=== PATIENT | male | born 2000 | race Caucasian/White ===

== ENCOUNTER 2022-11-21 08:22 | Inpatient (IN) | payer OTHER, SELFPAY ==
[2022-11-21] VITALS (133 sets, daily range): BP systolic 126–190; BP diastolic 70–134; PULSE 75–163; RESP 11–70; TEMP 36.8–37.7; O2SAT 82–100; BMI 22.5
--- NOTE | 2022-11-21 08:29 | CTR_ITS ---
PROCEDURE INFORMATION: Exam: CT Head Without Contrast Exam date and time: 11/21/2022 8:58 AM Age: 22 years old Clinical indication: Altered mental status/memory loss; Patient HX: Fall x today hitting posterior head on concrete. Multiple seizures since. ; Additional info: Ams/loc TECHNIQUE: Imaging protocol: Computed tomography of the head without contrast. Radiation optimization: All CT scans at this facility use at least one of these dose optimization techniques: automated exposure control; mA and/or kV adjustment per patient size (includes targeted exams where dose is matched to clinical indication); or iterative reconstruction. COMPARISON: No relevant prior studies available. RADIATION DOSE METRICS: Total DLP (mGy-cm): 1140.29 FINDINGS: Brain: Normal. No hemorrhage. No space-occupying masses or areas of mass effect. No edema or midline shift. Cortical sulci are unremarkable for age. Cerebral ventricles: No ventriculomegaly. Paranasal sinuses: Visualized sinuses are unremarkable. No fluid levels. Mastoid air cells: Visualized mastoid air cells are well aerated. Bones/joints: Unremarkable. Soft tissues: Small scalp hematoma adjacent to the left occipital bone. CT/CT head wo con* [id number] IMPRESSION: Small scalp hematoma otherwise negative CT examination of the head.
--- NOTE | 2022-11-21 08:32 | W.ED.SEIZURE ---
HPI - Seizure General: Chief Complaint: Seizure Stated Complaint: Fall Time Seen by Provider: 11/21/22 08:23 Source: patient Mode of arrival: EMS History of Present Illness: HPI Narrative: 22-year-old male brought into the emergency room from local primary care clinic by EMS. His father had found him at home passed out he was uncertain what happened brought to the clinic to be evaluated. He had a witnessed seizure at the clinic. No previous history of seizures. Loss of urine continence during the episode. He is awake and alert when he arrives here he is asking for water. No recent illness no vomiting or diarrhea no abdominal or chest pain no head trauma is noticeable. MD complaint: seizure Onset (ago): minute(s) Description of Episode: tonic-clonic movement and bladder incontinence Witnessed: Yes - by Bystander Trauma: No Seizure History: No Place: Clinic Possible Precipitating Event: none Associated symptoms: Reports confusion; Deny chest pain, chills, cough, diaphoresis, fever(s), anorexia, malaise, rash, short of breath, syncope or weakness Treatments prior to arrival: none Review of Systems Const: Denies: fever(s), chills, malaise or diaphoresis ENMT: Denies: throat pain, ear or mastoid pain, nasal discharge or nasal congestion Card: Denies: chest pain or syncope Resp: Denies: dyspnea, productive cough or non-productive cough GI: Denies: abdominal pain, nausea, vomiting, hematemesis, coffee ground emesis, diarrhea, constipation, bloating, hematochezia or melena : Denies: flank pain, dysuria, urinary frequency or urinary urgency Skin/Breast: Denies: rash or pruritus Neuro: Reports: confusion PFSH ED PFSH: Medical History No significant past medical history Surgical History History of appendectomy History of surgery on lower extremity S/P appendectomy Social History Smoking and tobacco status: current every day smoker Alcohol intake: current Alcohol intake frequency: 3 or more drinks per day Physical Exam Const: GENERAL APPEARANCE: cooperative and comfortable ORIENTATION/CONSCIOUSNESS: Yes awake HENMT: COMMON NORMALS: normocephalic, atraumatic and hearing grossly normal bilaterally HEAD & SCALP: normocephalic and atraumatic Eye: COMMON NORMALS: Equal, round and reactive pupils present, EOMs intact bilaterally, conjunctivae normal and no scleral icterus CONJUNCTIVA: Yes conjunctivae normal PUPIL: Yes Equal, round and reactive pupils present Neck/C-Spine: COMMON NORMALS: full ROM, no lymphadenopathy and supple Lymph: LYMPHATIC: no lymphadenopathy noted and no lymphedema noted Resp: COMMON NORMALS: normal respiratory effort, No retractions, No use of accessory muscles and clear to auscultation bilaterally AUSCULTATION: clear to auscultation bilaterally Cardio: COMMON NORMALS: regular rate, regular rhythm and No murmurs present (Cardio) RATE: regular rate RHYTHM: regular rhythm GI: COMMON NORMALS: Soft to palpation and No hepatosplenomegaly present AUSCULTATION: Yes normoactive bowel sounds PALPATION: Yes Soft to palpation, No Tenderness to palpation present (GI), No Guarding due to palpation present (GI) and Yes No hepatosplenomegaly present Extremity: COMMON NORMALS: normal to inspection, capillary refill normal, no clubbing, cyanosis or edema, no calf tenderness and no pedal edema Neuro: OTHER: Patient was tremulous when his postictal phase resolved. Skin: COMMON NORMALS: no rashes or lesions noted GENERAL SKIN EXAM: no rashes or lesions noted Course Vital Signs: Vital signs: Vital Signs Temperature 98.3 F 11/21/22 20:00 Pulse Rate 93 11/22/22 02:30 Respiratory Rate 26 H 11/22/22 02:30 Blood Pressure 190/115 11/22/22 02:30 Pulse Oximetry 96 11/22/22 02:30 Oxygen Delivery Me thod 11/22/22 02:30 Oxygen Flow Rate 2 11/21/22 10:38 Fraction of Inspir ed Oxygen 50 11/22/22 02:30 MDM - Seizure MDM Narrative Medical decision making narrative: Patient arrived here he had a witnessed seizure by EMS and is seizure at home. After he been here time he had a witnessed seizure here to grand mal seizure with deviation of the eyes and the neck to the labs. During that time he desatted and during the early postictal phase he was not maintaining his sats he was repositioned oxygen was applied and a nasal trumpet was placed. This resolved his issues eventually to his postictal phase resolved and he was very tremulous also noted to be extremely tachycardic. Initial discussions with the patient and his parents he was only drinking occasionally 1-2 beers at night during the week I have been more weak. Later his girlfriend admitted he will have 4 or more more mixed drinks per night and then drink more heavily on the weekends been going on for some time. Given his tachycardia and tremulousness that he think he is having alcohol withdrawal is fairly significant given his blood alcohol is just under 80 after he arrived here and he had already had 2 seizures. CIWA protocol initiated, patient given extra dose of Ativan while in the emergency room. He will be admitted to the ICU for alcohol withdrawal and onset of seizures. Medical Records Attestation: I reviewed the patient's medical records. Lab Data Attestation: I reviewed the patient's lab results. 11/21/22 08:08 11/21/22 14:00 Labs: Radiology Impressions Head CT 11/21/22 08:29 IMPRESSION: Small scalp hematoma otherwise negative CT examination of the head. Chest X-Ray 11/21/22 08:38 Impression: Negative chest. Laboratory Results WBC 4.0 10^3/uL (4.0-10.0) 11/21/22 08:08 RBC 5.07 10^6/uL (4.1-5.3) 11/21/22 08:08 Hgb 16.2 g/dL (11.7-16.6) 11/21/22 08:08 Hct 50.9 % (42.0-52.0) 11/21/22 08:08 MCV 100.4 fl (80-94) H 11/21/22 08:08 MCH 32.0 pg (28.0-34.0) 11/21/22 08:08 MCHC 31.8 g/dL (30.0-36.0) 11/21/22 08:08 RDW 12.5 % (12.1-15.1) 11/21/22 08:08 Plt Count 146 10^3/cmm (130-400) 11/21/22 08:08 MPV 10.4 fL (7.4-10.4) 11/21/22 08:08 Neut % (Auto) 37.7 % 11/21/22 08:08 Lymph % (Auto) 41.0 % 11/21/22 08:08 Mcminn % (Auto) 19.0 % 11/21/22 08:08 Eos % (Auto) 0.5 % 11/21/22 08:08 Baso % (Auto) 1.0 % 11/21/22 08:08 Neut # (Auto) 1.51 10^3/uL (1.8-7.7) L 11/21/22 08:08 Lymph # (Auto) 1.6 10^3/uL (0.8-4.8) 11/21/22 08:08 Mcminn # (Auto) 0.8 10^3/uL (0.2-0.9) 11/21/22 08:08 Eos # (Auto) 0.0 10^3/uL (0.0-0.8) 11/21/22 08:08 Baso # (Auto) 0.0 10^3/uL (0.0-0.1) 11/21/22 08:08 Nucleated RBC % (auto) 0 % 11/21/22 08:08 Nucleated RBCs # 0.0 /100WBC 11/21/22 08:08 Sodium 136 mmol/L (136-145) 11/21/22 14:00 Potassium 3.7 mmol/L (3.5-5.1) 11/21/22 14:00 Chloride 102 mmol/L (98-107) 11/21/22 14:00 Carbon Dioxide 20 mmol/L (22-29) L 11/21/22 14:00 Anion Gap 17.7 (5-19) 11/21/22 14:00 BUN 10 mg/dL (6-20) 11/21/22 14:00 Creatinine 0.6 mg/dL (0.7-1.2) L 11/21/22 14:00 GFR Calculation 168.5 mL/min (90-130) H 11/21/22 14:00 Glucose 75 mg/dL (65-115) 11/21/22 14:00 Calculated Osmolality 280 mOsm/kg (285-295) L 11/21/22 14:00 Calcium 7.8 mg/dL (8.5-10.5) L 11/21/22 14:00 Total Bilirubin 0.7 mg/dL (0.15-1.2) 11/21/22 08:08 AST 187 U/L (0-40) H 11/21/22 08:08 ALT 135 U/L (0-41) H 11/21/22 08:08 Alkaline Phosphatase 81 U/L (40-130) 11/21/22 08:08 Creatine Kinase 677 U/L (39-308) H* 11/21/22 14:00 Total Protein 8.8 g/dL (6.6-8.7) H 11/21/22 08:08 Albumin 5.0 g/dL (3.5-5.2) 11/21/22 08:08 Globulin 3.8 g/dL (1.3-4.6) 11/21/22 08:08 Urine Color Yellow (Yellow) 11/21/22 11:45 Urine Appearance Clear (CLEAR) 11/21/22 11:45 Urine pH 6 (5-7) 11/21/22 11:45 Ur Specific [place] 1.025 (1.005-1.030) 11/21/22 11:45 Urine Protein 2+ (Negative) H 11/21/22 11:45 Urine Glucose (UA) Norm (Normal) 11/21/22 11:45 Urine Ketones 1+ (Negative) H 11/21/22 11:45 Urine Blood 3+ (Negative) H 11/21/22 11:45 Urine Nitrate Negative (Negative) 11/21/22 11:45 Urine Bilirubin Neg (Negative) 11/21/22 11:45 Urine Urobilinogen Neg mg/dL (Negative) 11/21/22 11:45 Ur Leukocyte Esterase Negative (Negative) 11/21/22 11:45 Urine RBC 0-4 /hpf (0-2) H 11/21/22 11:45 Urine WBC None /hpf (0-5) 11/21/22 11:45 Ur Squamous Epith Cells None /hpf (0-5) 11/21/22 11:45 Amorphous Sediment Not Reportable 11/21/22 11:45 Urine Bacteria Trace /hpf (NONE) 11/21/22 11:45 Hyaline Casts 0-4 /lpf H 11/21/22 11:45 Salicylates < 0.3 mg/dL (3-10) L 11/21/22 08:08 Urine Opiates Screen Negative ng/mL (Negative) 11/21/22 11:45 Acetaminophen < 5.0 ug/mL (10-30) L 11/21/22 08:08 Ur Barbiturates Screen Negative ng/mL (Negative) 11/21/22 11:45 Ur Phencyclidine Scrn Negative ng/mL (Negative) 11/21/22 11:45 Ur Amphetamines Screen Negative ng/mL (Negative) 11/21/22 11:45 U Benzodiazepines Scrn Negative ng/mL (Negative) 11/21/22 11:45 Urine Cocaine Screen Negative ng/mL (Negative) 11/21/22 11:45 U Marijuana (THC) Screen Negative ng/mL (Negative) 11/21/22 11:45 Ethyl Alcohol 74 mg/dL (0-10) H 11/21/22 08:08 Hepatitis A IgM Ab Non-reactive (Nonreactive) 11/21/22 08:08 Hep Bs Antigen Non-reactive (Nonreactive) 11/21/22 08:08 Hep B Core IgM Ab Non-reactive (Nonreactive) 11/21/22 08:08 Hepatitis C Antibody Non-reactive (Nonreactive) 11/21/22 08:08 Discharge Plan Discharge Patient Disposition: Admitted As Inpatient Admit Provider: Gallo Okeefe Clinical Impression: Alcohol withdrawal, Seizure, Transaminitis Condition: Stable Coding Level of Care Code ED Machine Ii Coremaker for [place] Fwd Exam Comprehensive
--- NOTE | 2022-11-21 08:36 | ECG_ITS ---
[facility] Test Date: 2022-11-21 Pat Name: Saw No Department: Room: Gender: Male Visual Merchandiser: : 2000 Requested By: Apolinar Palacios Order Number: [id number] Ed MD: Antwan Cannon M.D. Measurements Intervals [place] Rate: 125 P: 81 CA: 172 QRS: 76 QRSD: 112 T: 20 QT: 321 QTc: 464 Interpretive Statements SINUS TACHYCARDIA MODERATE INTRAVENTRICULAR CONDUCTION DELAY [110+ ms QRS DURATION] MINIMAL ST DEPRESSION [0.025+ mV ST DEPRESSION] ABNORMAL RHYTHM ECG No previous ECG available for comparison Electronically Signed On 11-21-2022 20:25:09 CARD GAME OPERATOR by Antwan Cannon M.D. [id number]
--- NOTE | 2022-11-21 08:38 | XR_ITS ---
WS: [id number] Portable AP upright chest, 11/21/2022 Clinical Data: hypoxia Comparison: None. Findings: No nodules, masses or effusions are seen. The heart is normal. The pulmonary vascularity is not increased. No pneumonia or pneumothorax is seen. XR/XR chest 1V portable [id number] Impression: Negative chest.
[2022-11-21 08:48] LABS: Eosinophils % 0.5 %; Hematocrit 50.9 % (42.0-52.0); Hemoglobin 16.2 g/dL (11.7-16.6); Lymphocytes # 1.6 10^3/uL (0.8-4.8); Mean Corpuscular HGB Conc 31.8 g/dL (30.0-36.0); Mean Corpuscular Volume 100.4 fl (80-94); Mean Platelet Volume 10.4 fL (7.4-10.4); Monocytes # 0.8 10^3/uL (0.2-0.9); Neutrophils # 1.51 10^3/uL (1.8-7.7); Neutrophils % 37.7 %; Nucleated Red Blood Cells % 0 %; Platelet Count 146 10^3/cmm (130-400); Red Blood Count 5.07 10^6/uL (4.1-5.3); Red Cell Distribution Width 12.5 % (12.1-15.1)
[2022-11-21 09:11] LABS: Alanine Aminotransferase 135 U/L (0-41); Alcohol Level 74 mg/dL (0-10); Alkaline Phosphatase 81 U/L (40-130); Anion Gap 35.5 (5-19); Aspartate Amino Transferase 187 U/L (0-40); Blood Urea Nitrogen 12 mg/dL (6-20); Calcium 9.5 mg/dL (8.5-10.5); Carbon Dioxide 13 mmol/L (22-29); Chloride 94 mmol/L (98-107); Globulin 3.8 g/dL (1.3-4.6); Glomerular Filtration Rate 105.5 mL/min (90-130); Glucose 109 mg/dL (65-115); Osmolality Calculated 288 mOsm/kg (285-295); Potassium 3.5 mmol/L (3.5-5.1); Sodium 139 mmol/L (136-145); Total Bilirubin 0.7 mg/dL (0.15-1.2); Total Protein 8.8 g/dL (6.6-8.7)
[2022-11-21 09:13] LABS: Acetaminophen < 5.0 ug/mL (10-30); Salicylate < 0.3 mg/dL (3-10)
[2022-11-21] MEDS: LORazepam 2 mg/mL INJ 1 mL IVP (10:34)
[2022-11-21] MEDS: sodium chloride 0.9% 1,000 ML 999 ML IV ×2 (12:03→14:01)
[2022-11-21 12:10] LABS: Amphetamines Screen Urine Negative (Negative); Barbiturates Screen Urine Negative (Negative); Benzodiazepines Screen Urine Negative (Negative); Cocaine Screen Urine Negative (Negative); Opiate Screen Urine Negative (Negative); PCP Screen Urine Negative (Negative); Protein Urine 2+ (Negative); Specific Gravity, Urine 1.025 (1.005-1.030); THC Screen Urine Negative (Negative); Urine Appearance Clear (CLEAR); Urine Color Yellow (Yellow); pH Urine 6 (5-7)
[2022-11-21 12:11] LABS: Add Urine Culture? No; Add Urine Microscopic? YES; Bacteria Urine TRACE /hpf; Bilirubin Urine Neg (Negative); Blood Urine 3+ (Negative); Glucose Urine UA Norm (Normal); Hyaline Casts Urine 0-4 /lpf; Ketones Urine 1+ (Negative); Leukocyte Esterase Urine Negative (Negative); Nitrate Urine Negative (Negative); RBC Urine 0-4 /hpf (0-2); Urobilinogen Urine Neg (Negative)
[2022-11-21] MEDS: LORazepam 2 mg Tablet PO ×2 (12:29→22:53)
--- NOTE | 2022-11-21 13:50 | PM.HP ---
Providers/Chief Complaint Admitting Physician: Gallo Okeefe MD, hospitalist Chief Complaint: Fall History of Present Illness Saw No is a 22 year old male presenting to the emergency department for concern of seizure. Apparently his father found him at home, passed out and was uncertain what happened. He was brought to the clinic where his seizure was witnessed. He was later seen to seize in the emergency department as well. Patient is alert and oriented currently and denies any prior history of seizure disorder. He reports he has had some shaking intermittently, worse when he skips meals for quite some time. He reports he does drink alcohol, around 4 drinks or so a day at least for the last year. He reports his mother has had some seizures but he is not for sure if they are familial. He denies any recent significant illness, fever. He denies any shortness of breath, headache. In the emergency department he received some Keppra, and some Ativan. With concern of alcohol withdrawal he was placed on a CIWA protocol. No history of head trauma. Review of Systems General: Reports: 10 or more systems reviewed and unremarkable except in HPI and below Const: Denies: fever(s) or chills Eyes: Denies: change in vision ENMT: Denies: throat pain Card: Denies: chest pain Resp: Denies: dyspnea GI: Denies: abdominal pain : Denies: flank pain Musc: Denies: neck pain Skin/Breast: Denies: rash Neuro: Reports: seizure-like activity; Denies: headache(s) Psych: Denies: anxiety or depression Endo: Denies: polyuria Socrates/Lymph: Denies: easy bruising All/Imm: Denies: urticaria Medications/Allergies Home Medications Medication Instructions Recorded Confirmed Last Taken Type No Known Home Medications 11/21/22 11/21/22 Unknown History Allergies Allergy/AdvReac Type Severity Reaction Status Date / Time No Known Allergies Allergy Unverified 11/21/22 09:13 PFSH Acute PFSH: Medical History (Updated 11/21/22 @ 14:07 by Gallo Okeefe MD) No significant past medical history Surgical History (Updated 11/21/22 @ 14:04 by Gallo Okeefe MD) History of appendectomy History of surgery on lower extremity S/P appendectomy Social History (Updated 11/21/22 @ 14:05 by Gallo Okeefe MD) Smoking and tobacco status: current every day smoker Alcohol intake: current Alcohol intake frequency: 3 or more drinks per day Other PFSH information: Supplemental [facility] Information: Family history significant for seizures Vitals/I&O/Wt Last Vital Signs Temp 98.2 F 11/21/22 12:45 Pulse 117 H 11/21/22 12:40 Resp 15 11/21/22 12:40 BP 159/110 11/21/22 12:40 Pulse Ox 94 11/21/22 12:40 O2 Del Method 11/21/22 10:38 O2 Flow Rate 2 11/21/22 10:38 11/20/22 11/21/22 11/21/22 22:59 06:59 14:59 Intake Total 1110 / 1110 Balance 1110 / 1110 Weight last 48 hrs Weight 90.718 kg Physical Exam Narrative: General exam is a white male, with tremor, in no apparent distress was able to answer questions appropriately and denies headache HEENT: Atraumatic normocephalic pupils equally round. Oropharynx clear Neck is supple no lymphadenopathy thyromegaly Cardiovascular tachycardic, regular, no murmur Lungs clear no wheezing or crackles Abdomen is soft obese nontender positive bowel sounds. No obvious organomegaly exams deferred Extremities no cyanosis clubbing or edema, cap refill brisk Skin no rash Neuro no focal deficits. Data 11/21/22 08:08 11/21/22 08:08 Other Labs: LFTs demonstrate an AST of 187 and ALT of 135. Alk phos, bilirubin and albumin are all normal Urinalysis demonstrates 0-4 red cells, no white cells. Urine drug screen is essentially negative. Salicylate and Tylenol level undetectable. Alcohol level 74 CT head demonstrates small scalp hematoma otherwise negative. Chest x-ray negative. EKG demonstrates sinus tachycardia, normal axis, nonspecific ST-T wave changes A&P Assessment and plan (1) Seizure: Patient presents from home unresponsive. 2 witnessed seizures have been noted in the emergency department as well as in the referring clinic Keppra has been initiated in the emergency department. We will continue 1000 mg IV every 12 hours Observe for any further seizures (2) Alcohol withdrawal: I believe the patient may be undergoing alcohol withdrawal. He admits to at least 4 drinks per day. He is tachycardic, hypertensive, and tremulous. Initiate CIWA protocol, Ativan as needed If this fails consider phenobarbital (3) Transaminitis: Check hepatitis panel Repeat tomorrow Plan Full code Low risk for DVT, no prophylaxis needed Attestations Medical Necessity Statement*: Will require greater than 2 midnight stay secondary to repetitive seizures and concern for alcohol withdrawal. Critical Care Time: The high probability of a clinically significant, sudden or life threatening deterioration of the patient's [neurologic, metabolic] system(s) required my full and direct attention, intervention and personal management. The critical care time is as shown. This time is in addition to time spent performing any reported procedures but includes the following: [x] Data and vital sign review and interpretation [x] Patient assessment, examination and intervention [x] Documentation [x] Medication orders and management Critical Care Time (min): 46 Coding Level of Care Code Acute Otter Trawler Boatswain for [facility] Mars Diagnoses Seizure R56.9 Alcohol withdrawal F10.939 Transaminitis R74.01
[2022-11-21 14:38] LABS: Anion Gap 17.7 (5-19); Blood Urea Nitrogen 10 mg/dL (6-20); Calcium 7.8 mg/dL (8.5-10.5); Carbon Dioxide 20 mmol/L (22-29); Chloride 102 mmol/L (98-107); Glomerular Filtration Rate 168.5 mL/min (90-130); Glucose 75 mg/dL (65-115); Osmolality Calculated 280 mOsm/kg (285-295); Potassium 3.7 mmol/L (3.5-5.1); Sodium 136 mmol/L (136-145)
[2022-11-21 14:39] LABS: Hepatitis A Antibody IgM Non-Reactive (Nonreactive); Hepatitis B Core IgM Non-Reactive (Nonreactive); Hepatitis B Surface Antigen Non-Reactive (Nonreactive); Hepatitis C Virus Antibody Non-Reactive (Nonreactive)
[2022-11-21 14:52] LABS: Creatine Phosphokinase 677 U/L (39-308)
[2022-11-21 16:59] LABS: Glucose Point of Care 89 mg/dL (70-110)
[2022-11-21] MEDS: D5-NS 0.45% + KCL 20 mEq 20 MEQ/1,000 ML BAG 150 MEQ IV ×2 (17:01→23:44)
[2022-11-21] MEDS: famotidine 20 mg/2 mL INJ IVP (17:01)
[2022-11-21] MEDS: hyDRALAzine 20 mg/mL INJ 1 mL 10 MG IVP ×2 (17:54→23:44)
--- NOTE | 2022-11-21 23:10 | PC.NURSE ---
Patient states he is very anxious about tomorrow and worried about what is going to happen and if he is going to be able to go home. Patient educated on alcohol abuse and withdrawal symptoms including seizures. CIWA score 10. Ativan 2mg PO per protocol.
[2022-11-22] VITALS (46 sets, daily range): BP systolic 91–197; BP diastolic 42–127; PULSE 73–105; RESP 12–26; TEMP 36.8; O2SAT 91–98
[2022-11-22] MEDS: LORazepam 2 mg/mL INJ 1 mL IVP (02:26)
--- NOTE | 2022-11-22 03:21 | PC.NURSE ---
Patient becoming more anxious. Jumped out of bed disoriented looking for the bathroom and pulled IV out. Patient intermittently confused on location. Patient reoriented. Patient's mother is in the room and educated on the importance of calling for help when patient needs to use the bathroom. Patient educated multiple times on monitoring lines and leaving them on. Patient continuously removes pulse ox and cardiac monitoring. Mother is attempting to distract and keep monitoring in place. CIWA now scoring 17.
[2022-11-22] MEDS: LORazepam 2 mg/mL INJ 1 mL IM (03:55)
[2022-11-22] MEDS: ondansetron 2 mg/ML SDV 2 mL 4 MG IVP ×2 (06:01→15:07)
[2022-11-22] MEDS: famotidine 20 mg/2 mL INJ IVP ×2 (06:05→16:44)
[2022-11-22] MEDS: LORazepam 2 mg Tablet PO (06:30)
[2022-11-22 06:33] LABS: Basophils % 1.2 %; Eosinophils % 0.3 %; Hematocrit 46.3 % (42.0-52.0); Hemoglobin 15.2 g/dL (11.7-16.6); Lymphocytes % 30.5 %; Mean Corpuscular HGB Conc 32.8 g/dL (30.0-36.0); Mean Corpuscular Hemoglobin 31.6 pg (28.0-34.0); Mean Corpuscular Volume 96.3 fl (80-94); Mean Platelet Volume 10.4 fL (7.4-10.4); Monocytes # 0.6 10^3/uL (0.2-0.9); Monocytes % 18.1 %; Neutrophils # 1.59 10^3/uL (1.8-7.7); Neutrophils % 49.6 %; Nucleated Red Blood Cells % 0 %; Platelet Count 120 10^3/cmm (130-400); Red Blood Count 4.81 10^6/uL (4.1-5.3); Red Cell Distribution Width 12.2 % (12.1-15.1); White Blood Count 3.2 10^3/uL (4.0-10.0)
[2022-11-22 06:41] LABS: Alanine Aminotransferase 95 U/L (0-41); Albumin Level 4.6 g/dL (3.5-5.2); Alkaline Phosphatase 66 U/L (40-130); Anion Gap 20.5 (5-19); Aspartate Amino Transferase 126 U/L (0-40); Blood Urea Nitrogen 7 mg/dL (6-20); Calcium 9.1 mg/dL (8.5-10.5); Carbon Dioxide 22 mmol/L (22-29); Chloride 97 mmol/L (98-107); Globulin 3.4 g/dL (1.3-4.6); Glomerular Filtration Rate 168.5 mL/min (90-130); Glucose 102 mg/dL (65-115); Osmolality Calculated 280 mOsm/kg (285-295); Potassium 3.5 mmol/L (3.5-5.1); Sodium 136 mmol/L (136-145); Total Bilirubin 0.9 mg/dL (0.15-1.2)
[2022-11-22 06:48] LABS: Creatine Phosphokinase 1842 U/L (39-308)
[2022-11-22] MEDS: multivitamin therapeutic Tablet 1 TAB PO (08:08)
[2022-11-22] MEDS: thiamine 100 mg Tablet PO (08:08)
[2022-11-22] MEDS: folic acid 1 mg Tablet PO (08:08)
[2022-11-22] MEDS: D5-NS 0.45% + KCL 20 mEq 20 MEQ/1,000 ML BAG 150 MEQ IV ×3 (08:09→20:12)
--- NOTE | 2022-11-22 10:09 | PM.PN ---
Subjective Subjective: Saw reports he is fairly sore this morning. No seizures noted overnight. He has required several doses of Ativan. Medications: Reviewed: Yes Vitals/I&O/Wt Last Vital Signs Temp 98.3 F 11/21/22 20:00 Pulse 88 11/22/22 09:22 Resp 24 H 11/22/22 07:30 BP 91/42 11/22/22 08:00 Pulse Ox 98 11/22/22 09:22 O2 Del Method 11/22/22 09:22 O2 Flow Rate 2 11/21/22 10:38 FiO2 50 11/22/22 02:00 11/21/22 11/22/22 11/22/22 22:59 06:59 14:59 Intake Total 1920 / 3030 2110 / 5140 240 / 240 Output Total 250 / 250 450 / 700 Balance 1670 / 2780 1660 / 4440 240 / 240 Weight last 48 hrs Weight 128.905 kg Weight 90.718 kg Physical Exam Narrative: General exam is a white male, slightly tremulous, awakens and answers questions Neck is supple no lymphadenopathy thyromegaly Cardiovascular tachycardic, regular, no murmur Lungs clear no wheezing or crackles Abdomen is soft obese nontender positive bowel sounds. No obvious organomegaly exams deferred Extremities no cyanosis clubbing or edema, cap refill brisk Skin no rash Neuro no focal deficits. Data 11/22/22 05:58 11/22/22 05:58 A&P Assessment and plan (1) Seizure: Patient presents from home unresponsive. 2 witnessed seizures have been noted in the emergency department as well as in the referring clinic Keppra has been initiated in the emergency department. Changed to p.o. (2) Alcohol withdrawal: I believe the patient may be undergoing alcohol withdrawal. He admits to at least 4 drinks per day. He is tachycardic, hypertensive, and tremulous. Continue CIWA protocol, Ativan as needed If this fails consider phenobarbital Continue thiamine, folate, multivitamin Discharge planning, to give outpatient materials Add Librium p.o. as needed (3) Transaminitis: Hepatitis panel negative LFTs slight improvement Plan Slightly low platelet count, white count, consistent with alcohol use Rhabdomyolysis. CK more elevated today. Continue hydration. Full code Low risk for DVT, no prophylaxis needed Attestations Medical Necessity Statement*: Needs continued hospitalization for close monitoring secondary to alcohol withdrawal requiring IV Ativan. Coding Level of Care Code Acute Graphotype Operator for [facility] Fwd Diagnoses Seizure R56.9 Alcohol withdrawal F10.939 Transaminitis R74.01
[2022-11-22] MEDS: chlordiazePOXIDE 25 mg Capsule PO ×2 (10:38→16:44)
--- NOTE | 2022-11-22 10:39 | PC.CHAP ---
Pastoral Care Encounter/Spiritual Assessment Type of Contact [] Declined manager emergency department visit [] Patient/Family/Request visit [] Outpatient visit [] Follow-up visit [] Physician referral [] Code/Alert [x] Routine visit [] Staff referral [] Actively dying [] Patient sleeping [x] Family support [] [] Out of room [] Palliative care [] [x] Receiving care in room [] Pre-surgical visit [] Trauma [] Long length of stay [x] ICU visit [] Other: Relational/Emotional Strength [] Patient feels connected with others/family/visitors/staff [] Distress [] Loneliness/isolation [] Abandonment Spirituality of Patient [] Person of Anca [] Attends Scientologist of their Anca [] Believes in Prayer [] Reads Bible or Evangelical materials [] There are Spiritual issues to be addressed Elementary Education Tutor Interventions [x] Prayer [] Active listening [] Non-anxious presence [] Spiritual/emotional support [] Crisis/trauma care [] Spiritual counseling [] Bereavement support [] Provided bereavement packet [] Provided Bible/devotional materials [] Provided toy/stuffed animal, coloring book to patient or family member [] Provided Communion [] Anointing/[place] [] Salvation [x] Completed spiritual assessment [] Other: Impact on Illness or Injury [] Angry [] Fearful [] Anxious [] Often cries [] Exhaustion [] Unable to work [] Unable to attend yazidi [] Unable to walk/stand [] Unable to read [] Unable to drive [] Unable to eat/drink [] Unable to sleep [] Unable to be with family [] Patient intubated [] Other: Summary Time spent with patient
[2022-11-22] MEDS: nicotine 21 mg Patch 1 PATCH TRANSDERMA (11:01)
--- NOTE | 2022-11-22 17:50 | PC.NURSE ---
Patient getting up to bathroom earlier this shift, patient had an accident and slipped in urine with staff in the room and fell on bottom to ground. No injuries sustained. Patient did not hit head, as staff witnessed fall. Notified Dr. Okeefe who asked patient not get up without assist from staff. Patient was also switched to librium to help with withdrawals.
[2022-11-22] MEDS: levETIRAcetam 500 mg Tablet 1000 MG PO (20:10)
--- NOTE | 2022-11-22 22:10 | ECG_ITS ---
[facility] Test Date: 2022-11-22 Pat Name: Saw No Department: Room: [facility] Gender: Male Photo Producer: : 2000 Requested By: Sandra Rust Order Number: [id number] Ed MD: Luis Jane M.D. Measurements Intervals [place] Rate: 79 P: 69 TX: 160 QRS: 73 QRSD: 118 T: 69 QT: 406 QTc: 468 Interpretive Statements SINUS RHYTHM MODERATE INTRAVENTRICULAR CONDUCTION DELAY [110+ ms QRS DURATION] Compared to ECG 11/21/2022 08:36:09 Sinus tachycardia no longer present ST (T wave) deviation no longer present Electronically Signed On 11-23-2022 8:53:13 RESEARCH AND DEVELOPMENT TECHNICIAN by Luis Jane M.D. [id number]
[2022-11-23] VITALS (10 sets, daily range): BP systolic 147–170; BP diastolic 94–108; PULSE 69–107; RESP 18–24; TEMP 37.2; O2SAT 96–97
[2022-11-23] MEDS: D5-NS 0.45% + KCL 20 mEq 20 MEQ/1,000 ML BAG 150 MEQ IV (02:44)
[2022-11-23 03:16] LABS: Basophils % 0.9 %; Eosinophils % 0.9 %; Hematocrit 44.7 % (42.0-52.0); Hemoglobin 14.7 g/dL (11.7-16.6); Lymphocytes % 29.2 %; Mean Corpuscular HGB Conc 32.9 g/dL (30.0-36.0); Mean Corpuscular Hemoglobin 31.8 pg (28.0-34.0); Mean Corpuscular Volume 96.8 fl (80-94); Mean Platelet Volume 11.4 fL (7.4-10.4); Monocytes # 0.6 10^3/uL (0.2-0.9); Monocytes % 17.9 %; Neutrophils # 1.71 10^3/uL (1.8-7.7); Neutrophils % 50.8 %; Nucleated Red Blood Cells % 0 %; Platelet Count 115 10^3/cmm (130-400); Red Blood Count 4.62 10^6/uL (4.1-5.3); Red Cell Distribution Width 12.3 % (12.1-15.1); White Blood Count 3.4 10^3/uL (4.0-10.0)
[2022-11-23 03:46] LABS: Alanine Aminotransferase 93 U/L (0-41); Albumin Level 4.5 g/dL (3.5-5.2); Alkaline Phosphatase 65 U/L (40-130); Anion Gap 20.8 (5-19); Aspartate Amino Transferase 124 U/L (0-40); Blood Urea Nitrogen 9 mg/dL (6-20); Calcium 9.4 mg/dL (8.5-10.5); Carbon Dioxide 22 mmol/L (22-29); Chloride 99 mmol/L (98-107); Globulin 3.5 g/dL (1.3-4.6); Glomerular Filtration Rate 168.5 mL/min (90-130); Glucose 84 mg/dL (65-115); Osmolality Calculated 284 mOsm/kg (285-295); Potassium 3.8 mmol/L (3.5-5.1); Sodium 138 mmol/L (136-145); Total Bilirubin 1.1 mg/dL (0.15-1.2)
[2022-11-23] MEDS: famotidine 20 mg/2 mL INJ IVP (04:31)
[2022-11-23 04:49] LABS: Slide Review Slide Review Perform
[2022-11-23] MEDS: chlordiazePOXIDE 25 mg Capsule PO ×2 (05:00→08:12)
[2022-11-23 05:14] LABS: Creatine Phosphokinase 1386 U/L (39-308)
[2022-11-23] MEDS: nicotine 21 mg Patch 1 PATCH TRANSDERMA (06:22)
[2022-11-23] MEDS: PHENobarbital 32.4 mg Tablet 97.2 MG PO (07:11)
--- NOTE | 2022-11-23 07:35 | PC.NURSE ---
around 0530 this RN was called into patient room by other RN. patient was agitated and stated he wanted to leave. patient had removed all monitoring and IV. Security was called and MD to beside. this RN and other RN was able to deescalate patient to sit in room and wait for the MD and family to show up. MD arrived and spoke with patient and patient agreed to wait for morning primary MD to arrive.
[2022-11-23 08:12] LABS: Glucose Point of Care 97 mg/dL (70-110)
[2022-11-23] MEDS: levETIRAcetam 500 mg Tablet 1000 MG PO (08:44)
[2022-11-23] MEDS: folic acid 1 mg Tablet PO (08:44)
[2022-11-23] MEDS: thiamine 100 mg Tablet PO (08:44)
[2022-11-23] MEDS: multivitamin therapeutic Tablet 1 TAB PO (08:44)
--- NOTE | 2022-11-23 14:24 | PM.DCS ---
Discharge Providers Date of Admission: 11/21/22 16:19 Date of Discharge: November 23, 2022 Attending Provider at Admission: Gallo Okeefe MD Attending Provider at Discharge: Gallo Okeefe MD Diagnoses at Discharge Discharge Diagnosis (1) Seizure: Status: Acute (2) Alcohol withdrawal: Status: Acute (3) Transaminitis: Status: Acute Reason for Visit Reason for Visit: Fall Hospital Course Hospital Course aSw is a 22-year-old white male who presented to the emergency department with history of seizure at home, seizure at physician's office, and then a seizure in the ER. He was given Keppra IV, Ativan, and admitted to the ICU. Further history delineated significant alcohol intake and there was concern for withdrawal. He was placed on a CIWA protocol. He also received an adjuvant dose of phenobarbital, and some doses of Librium. By November 23 admission over 5 hours from his last dose of Librium and he requested to go home earlier in the day. It was thought reasonable to go home, follow-up with neurology with EEG. I did provide him with a prescription for a small amount of Librium to take as needed should he have any further withdrawal symptoms. Risks and benefits of this were discussed. Patient, and his family were given time to ask questions and agreed with the plan. He was told not to drive, and not to swim. Physical Exam Narrative: General exam is no distress Neck supple Cardiovascular regular rate and rhythm Lungs clear Abdomen soft with positive bowel sounds Extremities no sinus clubbing edema Skin no rash Neuro no focal deficits, alert and oriented x3 and ambulating without difficulty. Discharge Data Studies Completed and Pending Completed Studies During Hospitalization Category Date Time Status CT head wo con* [id number] Stat Cat Scan 11/21/22 08:29 Completed XR chest 1V portable [id number] Stat Exams 11/21/22 08:38 Completed Radiology Impressions Head CT 11/21/22 08:29 IMPRESSION: Small scalp hematoma otherwise negative CT examination of the head. Chest X-Ray 11/21/22 08:38 Impression: Negative chest. Laboratory Results WBC 3.4 10^3/uL (4.0-10.0) L 11/23/22 02:00 RBC 4.62 10^6/uL (4.1-5.3) 11/23/22 02:00 Hgb 14.7 g/dL (11.7-16.6) 11/23/22 02:00 Hct 44.7 % (42.0-52.0) 11/23/22 02:00 MCV 96.8 fl (80-94) H 11/23/22 02:00 MCH 31.8 pg (28.0-34.0) 11/23/22 02:00 MCHC 32.9 g/dL (30.0-36.0) 11/23/22 02:00 RDW 12.3 % (12.1-15.1) 11/23/22 02:00 Plt Count 115 10^3/cmm (130-400) L 11/23/22 02:00 MPV 11.4 fL (7.4-10.4) H 11/23/22 02:00 Neut % (Auto) 50.8 % 11/23/22 02:00 Lymph % (Auto) 29.2 % 11/23/22 02:00 [place] % (Auto) 17.9 % 11/23/22 02:00 Eos % (Auto) 0.9 % 11/23/22 02:00 Baso % (Auto) 0.9 % 11/23/22 02:00 Neut # (Auto) 1.71 10^3/uL (1.8-7.7) L 11/23/22 02:00 Lymph # (Auto) 1.0 10^3/uL (0.8-4.8) 11/23/22 02:00 [place] # (Auto) 0.6 10^3/uL (0.2-0.9) 11/23/22 02:00 Eos # (Auto) 0.0 10^3/uL (0.0-0.8) 11/23/22 02:00 Baso # (Auto) 0.0 10^3/uL (0.0-0.1) 11/23/22 02:00 Nucleated RBC % (auto) 0 % 11/23/22 02:00 Nucleated RBCs # 0.0 /100WBC 11/23/22 02:00 Sodium 138 mmol/L (136-145) 11/23/22 02:00 Potassium 3.8 mmol/L (3.5-5.1) 11/23/22 02:00 Chloride 99 mmol/L (98-107) 11/23/22 02:00 Carbon Dioxide 22 mmol/L (22-29) 11/23/22 02:00 Anion Gap 20.8 (5-19) H 11/23/22 02:00 BUN 9 mg/dL (6-20) 11/23/22 02:00 Creatinine 0.6 mg/dL (0.7-1.2) L 11/23/22 02:00 GFR Calculation 168.5 mL/min (90-130) H 11/23/22 02:00 Glucose 84 mg/dL (65-115) 11/23/22 02:00 POC Glucose 97 mg/dL (70-110) 11/23/22 05:56 Calculated Osmolality 284 mOsm/kg (285-295) L 11/23/22 02:00 Calcium 9.4 mg/dL (8.5-10.5) 11/23/22 02:00 Total Bilirubin 1.1 mg/dL (0.15-1.2) 11/23/22 02:00 AST 124 U/L (0-40) H 11/23/22 02:00 ALT 93 U/L (0-41) H 11/23/22 02:00 Alkaline Phosphatase 65 U/L (40-130) 11/23/22 02:00 Creatine Kinase 1386 U/L (39-308) H* 11/23/22 02:00 Total Protein 8.0 g/dL (6.6-8.7) 11/23/22 02:00 Albumin 4.5 g/dL (3.5-5.2) 11/23/22 02:00 Globulin 3.5 g/dL (1.3-4.6) 11/23/22 02:00 Urine Color Yellow (Yellow) 11/21/22 11:45 Urine Appearance Clear (CLEAR) 11/21/22 11:45 Urine pH 6 (5-7) 11/21/22 11:45 Ur Specific [place] 1.025 (1.005-1.030) 11/21/22 11:45 Urine Protein 2+ (Negative) H 11/21/22 11:45 Urine Glucose (UA) Norm (Normal) 11/21/22 11:45 Urine Ketones 1+ (Negative) H 11/21/22 11:45 Urine Blood 3+ (Negative) H 11/21/22 11:45 Urine Nitrate Negative (Negative) 11/21/22 11:45 Urine Bilirubin Neg (Negative) 11/21/22 11:45 Urine Urobilinogen Neg mg/dL (Negative) 11/21/22 11:45 Ur Leukocyte Esterase Negative (Negative) 11/21/22 11:45 Urine RBC 0-4 /hpf (0-2) H 11/21/22 11:45 Urine WBC None /hpf (0-5) 11/21/22 11:45 Ur Squamous Epith Cells None /hpf (0-5) 11/21/22 11:45 Amorphous Sediment Not Reportable 11/21/22 11:45 Urine Bacteria Trace /hpf (NONE) 11/21/22 11:45 Hyaline Casts 0-4 /lpf H 11/21/22 11:45 Salicylates < 0.3 mg/dL (3-10) L 11/21/22 08:08 Urine Opiates Screen Negative ng/mL (Negative) 11/21/22 11:45 Acetaminophen < 5.0 ug/mL (10-30) L 11/21/22 08:08 Ur Barbiturates Screen Negative ng/mL (Negative) 11/21/22 11:45 Ur Phencyclidine Scrn Negative ng/mL (Negative) 11/21/22 11:45 Ur Amphetamines Screen Negative ng/mL (Negative) 11/21/22 11:45 U Benzodiazepines Scrn Negative ng/mL (Negative) 11/21/22 11:45 Urine Cocaine Screen Negative ng/mL (Negative) 11/21/22 11:45 U Marijuana (THC) Screen Negative ng/mL (Negative) 11/21/22 11:45 Ethyl Alcohol 74 mg/dL (0-10) H 11/21/22 08:08 Hepatitis A IgM Ab Non-reactive (Nonreactive) 11/21/22 08:08 Hep Bs Antigen Non-reactive (Nonreactive) 11/21/22 08:08 Hep B Core IgM Ab Non-reactive (Nonreactive) 11/21/22 08:08 Hepatitis C Antibody Non-reactive (Nonreactive) 11/21/22 08:08 Vitals Last Vital Signs Temp 99.0 F 11/23/22 14:19 Pulse 88 11/23/22 14:19 Resp 24 H 11/23/22 14:19 BP 147/103 11/23/22 14:19 Pulse Ox 97 11/23/22 09:04 O2 Del Method 11/23/22 09:04 O2 Flow Rate 2 11/21/22 10:38 FiO2 50 11/22/22 02:00 Discharge Plan Discharge Patient Disposition: Home Condition: Stable Prescriptions: New levetiracetam 500 mg Tablet 1,000 mg PO BID Qty: 120 0RF chlordiazepoxide HCl 25 mg capsule 25 mg PO Q6H PRN (Reason: anxiety) Qty: 6 0RF Discharge Orders: Discharge Order (Routine); Ordered 11/23/22 Ordered By: Gallo Okeefe Other Ambulatory Orders: EEG electroencephalogram (Routine) Timeframe: 1 Week Facility: [facility] - Location: Neurology Ordered By: Gallo Okeefe [place] [facility] [place] [facility] [place]Other] (IF you are interested in Outpatient counseling services here is how to get started @ [facility] ?Follow up as a walk in at [facility], walk in hours are Sunday-Sunday from 7:30AM-3:00PM, first come, first seen. Once you do this assessment you will be referred for appropriate services.) Jessica Mike MD [Physician] - 2 weeks (seizure) Discharge Diet: Regular Discharge Activity: Increase activity as tolerated Patient Instructions: Opioid Safety Activity Restrictions/Additional Instructions: Off work until at least Sunday Follow-up with your primary care provider 4 to 7 days Follow-up with neurology 2 weeks No alcohol No swimming No driving Patient's Health Concerns: Seizure Assessment: Seizure Alcohol Plan of Treatment: Keppra 1000 mg twice daily Avoidance of all alcohol Follow-up with neurology 2 weeks EEG as outpatient Discharge Attestations Time Spent in Discharge Care*: greater than 30 min Quality Metrics Clinical Quality Measures [ No reported AMI, CVA or VTE this stay] Coding Level of Care Code Acute Chg FW DC note Diagnoses Seizure R56.9 Alcohol withdrawal F10.939 Transaminitis R74.01
--- NOTE | 2022-11-23 14:45 | PC.NURSE ---
Patient left via w/c at 1443.
== END 2022-11-23 14:43 | disposition home or self-care (01) | DRG 897 ==
LOC: ER 10:35 → ICU 18:38
PROVIDERS: Admitting Provider Internal Medicine; Emergency Provider Family Medicine; Visit Provider Internal Medicine
DX: F10.239 Alcohol dependence with withdrawal, unspecified (principal); M62.82 Rhabdomyolysis; Y90.3 Blood alcohol level of 60-79 mg/100 ml; R56.9 Unspecified convulsions; I10 Essential (primary) hypertension; R00.0 Tachycardia, unspecified; R74.01 Elevation of levels of liver transaminase levels
CPT/HCPCS: 36415; 36416; 70450; 71045; 80048; 80053; 80074; 80306; 80307; 81001; 82550; 82962; 85025; 93005; 96365; 96372; 96375; 99285; J0360; J1953; J2060; J2405; J3411; J3490; J7030

== ENCOUNTER 2023-03-05 11:45 | Inpatient (IN) | payer BC, SELFPAY ==
[2023-03-05] VITALS (40 sets, daily range): BP systolic 127–212; BP diastolic 78–142; PULSE 74–174; RESP 15–25; TEMP 36.7; O2SAT 90–97; BMI 30.4
--- NOTE | 2023-03-05 12:08 | ECG_ITS ---
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 Measurements Intervals [place] Rate: 186 P: 0 NM: 0 QRS: 77 QRSD: 100 T: 25 QT: 243 QTc: 428 Interpretive Statements ATRIAL FIBRILLATION WITH RAPID VENTRICULAR RESPONSE MODERATE ST DEPRESSION [0.05+ mV ST DEPRESSION] Compared to ECG 11/22/2022 22:18:06 ST (T wave) deviation now present Sinus rhythm no longer present Intraventricular conduction delay no longer present Electronically Signed On 03-05-2023 17:07:44 CDT by Luis Jane M.D. [id number]
[2023-03-05 12:32] LABS: Basophils # 0.1 10^3/uL (0.0-0.1); Basophils % 0.7 %; Eosinophils % 0.1 %; Hematocrit 47.7 % (42.0-52.0); Hemoglobin 15.6 g/dL (11.7-16.6); Lymphocytes # 0.8 10^3/uL (0.8-4.8); Lymphocytes % 10.9 %; Mean Corpuscular HGB Conc 32.7 g/dL (30.0-36.0); Mean Corpuscular Volume 94.6 fl (80-94); Mean Platelet Volume 9.9 fL (7.4-10.4); Monocytes # 0.8 10^3/uL (0.2-0.9); Monocytes % 10.2 %; Neutrophils % 77.8 %; Nucleated Red Blood Cells % 0 %; Platelet Count 166 10^3/cmm (130-400); Red Blood Count 5.04 10^6/uL (4.1-5.3); Red Cell Distribution Width 12.8 % (12.1-15.1); White Blood Count 7.3 10^3/uL (4.0-10.0)
--- NOTE | 2023-03-05 12:43 | ED_ITS ---
HPI - Seizure General: Chief Complaint: Seizure Stated Complaint: seizure Time Seen by Provider: 03/05/23 12:00 Source: patient Mode of arrival: ambulatory History of Present Illness: HPI Narrative: 22-year-old male with a known history of chronic alcohol abuse admits to having recently began drinking again. He had a seizure this morning. He is stopped drinking again. On arrival here he is noted to be tachycardic he is awake and alert able to answer questions and give history. He denies any abdominal or chest pain at this time. He does have a sensation of racing heartbeat. complaint: seizure Onset (ago): hour(s) Description of Episode: tonic-clonic movement Witnessed: Yes - by Bystander Trauma: No Seizure History: Yes (Related to alcohol withdrawal) Place: Home Possible Precipitating Event: alcohol withdrawal Associated symptoms: Deny chest pain, chills, confusion, cough, diaphoresis, fever(s), anorexia, malaise, rash, short of breath, syncope or weakness Treatments prior to arrival: none Review of Systems Const: Denies: fever(s), chills, malaise or diaphoresis ENMT: Denies: throat pain, ear or mastoid pain, nasal discharge or nasal congestion Card: Denies: chest pain or syncope Resp: Denies: dyspnea, productive cough or non-productive cough GI: Denies: abdominal pain, nausea, vomiting, hematemesis, coffee ground emesis, diarrhea, constipation, bloating, hematochezia or melena : Denies: flank pain, dysuria, urinary frequency or urinary urgency Skin/Breast: Denies: rash or pruritus Neuro: Denies: confusion PFSH ED PFSH: Medical History (Updated 03/06/23 @ 05:31 by Apolinar Espinoza DO) Alcohol abuse Concussion Psychiatric care Seizure Surgical History History of appendectomy History of surgery on lower extremity S/P appendectomy Social History Smoking and tobacco status: current every day smoker Alcohol intake: current Alcohol intake frequency: 3 or more drinks per day Physical Exam Const: GENERAL APPEARANCE: cooperative and comfortable ORIENTATION/CONSCIOUSNESS: Yes awake, Yes oriented to person, Yes oriented to place and Yes oriented to time HENMT: COMMON NORMALS: normocephalic, atraumatic and hearing grossly normal bilaterally HEAD & SCALP: normocephalic and atraumatic Resp: COMMON NORMALS: normal respiratory effort, No retractions, No use of accessory muscles and clear to auscultation bilaterally AUSCULTATION: clear to auscultation bilaterally Cardio: COMMON NORMALS: No murmurs present (Cardio) RATE: tachycardic RHYTHM: abnormal rhythm irregularly irregular GI: COMMON NORMALS: Soft to palpation and No hepatosplenomegaly present AUSCULTATION: Yes normoactive bowel sounds PALPATION: Yes Soft to palpation, No Tenderness to palpation present (GI), No Guarding due to palpation present (GI) and Yes No hepatosplenomegaly present Extremity: COMMON NORMALS: normal to inspection, capillary refill normal, no clubbing, cyanosis or edema, no calf tenderness and no pedal edema Neuro: SENSORIUM/ORIENTATION: Yes oriented to person, Yes oriented to place and Yes oriented to time Skin: COMMON NORMALS: no rashes or lesions noted GENERAL SKIN EXAM: no rashes or lesions noted Course Vital Signs: Vital signs: Vital Signs Temperature 98.2 F 03/06/23 00:00 Pulse Rate 80 03/06/23 04:30 Respiratory Rate 22 H 03/06/23 04:30 Blood Pressure 157/80 03/06/23 04:30 Pulse Oximetry 98 03/06/23 04:30 Oxygen Delivery Me thod Room Air 03/05/23 17:30 MDM - Seizure MDM Narrative Medical decision making narrative: Acute alcohol withdrawal with seizures. Patient was given Ativan multiple doses. This did seem to calm him down and also seem to contribute to lowering his heart rate additionally he was in A-fib when he arrived he was given Ca rdizem bolus and drip that did not seem to affect his heart rate significantly he was then switched to amiodarone which did improve his heart rate. He has mild elevation of his transaminases no elevation of T. bili. Will admit for alcohol withdrawal with seizures and new onset A-fib. Because the patient's overall condition and the drips required to control his heart rate he will need to go to the ICU. Medical Records Attestation: I reviewed the patient's medical records. Lab Data Attestation: I reviewed the patient's lab results. 03/06/23 02:57 03/06/23 02:57 Labs: Radiology Impressions Chest X-Ray 03/05/23 13:52 IMPRESSION: Unremarkable portable chest. Laboratory Results WBC 7.3 10^3/uL (4.0-10.0) 03/05/23 12:20 RBC 5.04 10^6/uL (4.1-5.3) 03/05/23 12:20 Hgb 15.6 g/dL (11.7-16.6) 03/05/23 12:20 Hct 47.7 % (42.0-52.0) 03/05/23 12:20 MCV 94.6 fl (80-94) H 03/05/23 12:20 MCH 31.0 pg (28.0-34.0) 03/05/23 12:20 MCHC 32.7 g/dL (30.0-36.0) 03/05/23 12:20 RDW 12.8 % (12.1-15.1) 03/05/23 12:20 Plt Count 166 10^3/cmm (130-400) 03/05/23 12:20 MPV 9.9 fL (7.4-10.4) 03/05/23 12:20 Neut % (Auto) 77.8 % 03/05/23 12:20 Lymph % (Auto) 10.9 % 03/05/23 12:20 [place] % (Auto) 10.2 % 03/05/23 12:20 Eos % (Auto) 0.1 % 03/05/23 12:20 Baso % (Auto) 0.7 % 03/05/23 12:20 Neut # (Auto) 5.70 10^3/uL (1.8-7.7) 03/05/23 12:20 Lymph # (Auto) 0.8 10^3/uL (0.8-4.8) 03/05/23 12:20 [place] # (Auto) 0.8 10^3/uL (0.2-0.9) 03/05/23 12:20 Eos # (Auto) 0.0 10^3/uL (0.0-0.8) 03/05/23 12:20 Baso # (Auto) 0.1 10^3/uL (0.0-0.1) 03/05/23 12:20 Nucleated RBC % (auto) 0 % 03/05/23 12:20 Nucleated RBCs # 0.0 /100WBC 03/05/23 12:20 Sodium 136 mmol/L (136-145) 03/05/23 12:20 Potassium 4.1 mmol/L (3.5-5.1) 03/05/23 12:20 Chloride 93 mmol/L (98-107) L 03/05/23 12:20 Carbon Dioxide 18 mmol/L (22-29) L 03/05/23 12:20 Anion Gap 29.1 (5-19) H 03/05/23 12:20 BUN 11 mg/dL (6-20) 03/05/23 12:20 Creatinine 0.9 mg/dL (0.7-1.2) 03/05/23 12:20 GFR Calculation 105.5 mL/min (90-130) 03/05/23 12:20 Glucose 149 mg/dL (65-115) H 03/05/23 12:20 Calculated Osmolality 284 mOsm/kg (285-295) L 03/05/23 12:20 Lactic Acid 1.3 mmol/L (0.5-2.2) 03/05/23 16:59 Calcium 10.2 mg/dL (8.5-10.5) 03/05/23 12:20 Iron 226 ug/dL (59-158) H 03/05/23 16:59 TIBC 299 mcg/dl 03/05/23 16:59 % Saturation 75.5 % (20-50) H 03/05/23 16:59 Unsat Iron Binding 73 ug/dL (112-347) L 03/05/23 16:59 Total Bilirubin 0.9 mg/dL (0.15-1.2) 03/05/23 12:20 AST 62 U/L (0-40) H 03/05/23 12:20 ALT 65 U/L (0-41) H 03/05/23 12:20 Alkaline Phosphatase 58 U/L (40-130) 03/05/23 12:20 Creatine Kinase 633 U/L (39-308) H* 03/05/23 16:59 Troponin T Baseline 10 ng/L (0-15) 03/05/23 12:20 Troponin T 120 Minute 11.99 ng/L (0-15) 03/05/23 14:54 Delta Troponin T 1.99 ABS# (0-10) 03/05/23 14:54 Total Protein 7.9 g/dL (6.6-8.7) 03/05/23 12:20 Albumin 4.8 g/dL (3.5-5.2) 03/05/23 12:20 Globulin 3.1 g/dL (1.3-4.6) 03/05/23 12:20 Vitamin B12 509 pg/mL (232-1245) 03/05/23 16:59 Folate 19.0 ng/mL (4.5-32.2) 03/05/23 16:59 TSH 2.60 uIU/mL (0.27-4.20) 03/05/23 16:59 Ethyl Alcohol < 10 mg/dL (0-10) 03/05/23 16:59 Critical Care Time Critical Care Time: Critical Care Time: Yes Total Critical Care Time: 40 Attestation: The high probability of a clinically significant, sudden or life threatening deterioration of the patient's [] system(s) required my full and direct attention, intervention and personal management. The critical care time is as shown. This time is in addition to time spent performing any reported procedures but includes the following: [x] Data and vital sign review and interpretation [x] Patient assessment, examination and intervention [x] Documentation [x] Medication orders and management Discharge Plan Discharge Patient Disposition: Admitted As Inpatient Admit Provider: Apollo Galo Clinical Impression: Alcohol abuse, Seizure, Transaminitis, Atrial fibrillation with rapid ventricular response Condition: Stable Coding Level of Care Code ED Cuff Turner Machine Operator for Everton Mars
[2023-03-05] MEDS: LORazepam 2 mg/mL INJ 1 mL IVP ×5 (12:51→15:07)
[2023-03-05] MEDS: ondansetron 2 mg/ML SDV 2 mL 4 MG IVP (12:51)
[2023-03-05] MEDS: dilTIAZem 5 mg/mL SDV 5 mL 20 MG IVP (12:51)
[2023-03-05] MEDS: dilTIAZem 100 MG in sodium chloride 0.9% (add-van) 100 ML 15 MG IV (12:51)
[2023-03-05 12:53] LABS: Alanine Aminotransferase 65 U/L (0-41); Albumin Level 4.8 g/dL (3.5-5.2); Alkaline Phosphatase 58 U/L (40-130); Aspartate Amino Transferase 62 U/L (0-40); Blood Urea Nitrogen 11 mg/dL (6-20); Calcium 10.2 mg/dL (8.5-10.5); Carbon Dioxide 18 mmol/L (22-29); Chloride 93 mmol/L (98-107); Globulin 3.1 g/dL (1.3-4.6); Glomerular Filtration Rate 105.5 mL/min (90-130); Glucose 149 mg/dL (65-115); Osmolality Calculated 284 mOsm/kg (285-295); Sodium 136 mmol/L (136-145); Total Bilirubin 0.9 mg/dL (0.15-1.2); Total Protein 7.9 g/dL (6.6-8.7)
[2023-03-05] MEDS: folic acid 1 mg Tablet PO (12:53)
[2023-03-05] MEDS: multivitamin therapeutic Tablet 1 TAB PO (12:53)
[2023-03-05] MEDS: thiamine 100 mg Tablet PO (12:53)
[2023-03-05] MEDS: sodium chloride 0.9% 1,000 ML 999 ML IV ×2 (12:53→13:12)
[2023-03-05 12:54] LABS: Troponin(5th) Baseline 10 ng/L (0-15)
[2023-03-05 12:57] LABS: Anion Gap 29.1 (5-19); Potassium 4.1 mmol/L (3.5-5.1)
[2023-03-05] MEDS: labetalol 5 mg/mL SDV 20mL 10 MG IVP (13:04)
--- NOTE | 2023-03-05 13:52 | XR_ITS ---
WS: [id number] PORTABLE CHEST HISTORY: dyspnea/cough COMPARISON: 11/21/2022 Lungs are clear and well expanded. No pleural effusion or pneumothorax. Cardiac size: Normal. Mediastinum/Aorta: Normal mediastinum. No osseous abnormality seen. XR/XR chest 1V portable [id number] IMPRESSION: Unremarkable portable chest.
--- NOTE | 2023-03-05 14:08 | ECG_ITS ---
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 Measurements Intervals [place] Rate: 117 P: 56 [place]: 140 QRS: 73 QRSD: 108 T: 54 QT: 372 QTc: 520 Interpretive Statements SINUS TACHYCARDIA NONSPECIFIC T-WAVE ABNORMALITY Compared to ECG 03/05/2023 12:21:41 T-wave abnormality now present Atrial fibrillation no longer present ST (T wave) deviation no longer present Electronically Signed On 03-05-2023 17:09:19 CDT by Luis Jane M.D. [email or web address]/store/[id number]
--- NOTE | 2023-03-05 14:29 | PC.PHAR ---
pt has not been taking keppra 1000mg BID, Lisinopril 10mg daily, and Sertraline 50mg once daily
[2023-03-05] MEDS: cloNIDine 0.1 mg Tablet PO (15:06)
[2023-03-05 15:36] LABS: Troponin 5 2HR 11.99 ng/L (0-15)
[2023-03-05 15:38] LABS: Troponin 5 2HR Delta 1.99 ABS# (0-10)
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
--- NOTE | 2023-03-05 16:53 | PC.NURSE ---
Arrived from ED via stretcher, aox3
--- NOTE | 2023-03-05 16:55 | CTR_ITS ---
PROCEDURE INFORMATION: Exam: CT Head Without Contrast Exam date and time: 03/06/2023 4:36 AM Age: 22 years old Clinical indication: Condition or disease; Convulsions or seizures; Patient HX: Seizure activity TECHNIQUE: Imaging protocol: Computed tomography of the head without contrast. Radiation optimization: All CT scans at this facility use at least one of these dose optimization techniques: automated exposure control; mA and/or kV adjustment per patient size (includes targeted exams where dose is matched to clinical indication); or iterative reconstruction. REPORTING DATA: Count of CT and Cardiac NM exams in prior 12 months: This patient has received [address] and 0 known cardiac nuclear medicine studies in the 12 months prior to the current study. COMPARISON: CT head wo con* [id number] 11/21/2022 8:58 AM RADIATION DOSE METRICS: Total DLP (mGy-cm): 2283.08 FINDINGS: Brain: No focal hemorrhage or midline shift is identified. Cerebral ventricles: No ventriculomegaly or evidence of acute hydrocephalus. Paranasal sinuses: The partially assessed sinuses are grossly clear. Mastoid air cells: Visualized mastoid air cells are well aerated. Bones/joints: No displaced skull fracture is noted. Soft tissues: Unremarkable. CT/CT head wo con* [id number] IMPRESSION: No acute intracranial abnormality.
[2023-03-05] MEDS: heparin 5,000 unit/mL INJ 1 mL 5000 UNIT SUBCUT (17:16)
[2023-03-05] MEDS: PHENobarbital 130 mg/mL SDV 1 mL 315 MG IV ×3 (17:17→23:55)
[2023-03-05] MEDS: pantoprazole 40 mg SDV IVP (17:19)
[2023-03-05] MEDS: dextrose 5%-sod chloride 0.45% 1,000 ML 150 ML IV (17:37)
[2023-03-05 17:48] LABS: Lactic Sepsis W/Reflex 1.3 mmol/L (0.5-2.2)
[2023-03-05] MEDS: folic acid 1 MG, multivitamin inj 10 ML, thiamine 100 MG in sodium chloride 0.9% 1,000 ML 252.8 MG IV (17:53)
[2023-03-05 17:57] LABS: Iron 226 ug/dL (59-158); Percent Saturation 75.5 % (20-50); Total Iron Binding Capacity 299 mcg/dl; Unsaturated Iron Binding 73 ug/dL (112-347); Vitamin B12 509 pg/mL (232-1245)
[2023-03-05 18:19] LABS: Alcohol Level < 10 mg/dL (0-10)
[2023-03-05 18:20] LABS: Creatine Phosphokinase 633 U/L (39-308)
[2023-03-05 20:53] LABS: Amphetamines Screen Urine Negative (Negative); Barbiturates Screen Urine Positive (Negative); Benzodiazepines Screen Urine Positive (Negative); Cocaine Screen Urine Negative (Negative); Opiate Screen Urine Negative (Negative); PCP Screen Urine Negative (Negative); THC Screen Urine Positive (Negative)
[2023-03-05 21:01] LABS: Troponin 5 6HR 12.26 ng/L (0-15)
[2023-03-05 21:03] LABS: Troponin 5 6HR Delta 2.26 ng/L (0-12)
[2023-03-05 21:04] LABS: Add Urine Culture? No; Add Urine Microscopic? YES; Bacteria Urine TRACE /hpf; Bilirubin Urine Neg (Negative); Blood Urine 3+ (Negative); Glucose Urine UA Norm (Normal); Ketones Urine 2+ (Negative); Leukocyte Esterase Urine Negative (Negative); Mucus Urine TRACE /hpf; Nitrate Urine Negative (Negative); Protein Urine 3+ (Negative); Squamous Epithelial Cell Urine 0-4 /hpf (0-5); Urine Appearance Clear (CLEAR); Urine Color Yellow (Yellow); Urobilinogen Urine 1 mg/dL (Negative); pH Urine 6 (5-7)
[2023-03-05 21:44] LABS: Blood Urea Nitrogen 12 mg/dL (6-20); Calcium 8.6 mg/dL (8.5-10.5); Carbon Dioxide 22 mmol/L (22-29); Chloride 98 mmol/L (98-107); Glomerular Filtration Rate 120.9 mL/min (90-130); Glucose 93 mg/dL (65-115); Osmolality Calculated 277 mOsm/kg (285-295); Sodium 134 mmol/L (136-145)
[2023-03-05 21:50] LABS: Anion Gap 17.6 (5-19); Potassium 3.6 mmol/L (3.5-5.1)
[2023-03-06] VITALS (22 sets, daily range): BP systolic 125–187; BP diastolic 80–127; PULSE 0–141; RESP 16–22; TEMP 36.8–36.9; O2SAT 84–99
[2023-03-06] MEDS: heparin 5,000 unit/mL INJ 1 mL 5000 UNIT SUBCUT ×3 (02:09→17:44)
[2023-03-06] MEDS: dextrose 5%-sod chloride 0.45% 1,000 ML 100 ML IV ×2 (02:46→21:07)
[2023-03-06 04:05] LABS: Basophils % 0.8 %; Eosinophils % 0.4 %; Hematocrit 42.1 % (42.0-52.0); Hemoglobin 13.7 g/dL (11.7-16.6); Lymphocytes # 1.1 10^3/uL (0.8-4.8); Lymphocytes % 23.2 %; Mean Corpuscular HGB Conc 32.5 g/dL (30.0-36.0); Mean Corpuscular Hemoglobin 31.5 pg (28.0-34.0); Mean Corpuscular Volume 96.8 fl (80-94); Mean Platelet Volume 10.4 fL (7.4-10.4); Monocytes # 0.7 10^3/uL (0.2-0.9); Monocytes % 14.7 %; Neutrophils # 2.97 10^3/uL (1.8-7.7); Neutrophils % 60.5 %; Nucleated Red Blood Cells % 0 %; Platelet Count 130 10^3/cmm (130-400); Red Blood Count 4.35 10^6/uL (4.1-5.3); Red Cell Distribution Width 12.9 % (12.1-15.1); White Blood Count 4.9 10^3/uL (4.0-10.0)
[2023-03-06 04:25] LABS: Alanine Aminotransferase 47 U/L (0-41); Alkaline Phosphatase 44 U/L (40-130); Aspartate Amino Transferase 59 U/L (0-40); Blood Urea Nitrogen 11 mg/dL (6-20); Calcium 8.8 mg/dL (8.5-10.5); Carbon Dioxide 24 mmol/L (22-29); Chloride 99 mmol/L (98-107); Chol HDL Ratio 3.73 mg/dL (1.0-5.00); Cholesterol 287 mg/dL (0-200); Globulin 2.8 g/dL (1.3-4.6); Glomerular Filtration Rate 120.9 mL/min (90-130); Glucose 93 mg/dL (65-115); HDL Cholesterol 77 mg/dL (60-100); LDL Cholesterol Calculated 190 mg/dL (50-129); LDL HDL Ratio 2.47 RATIO (0.00-3.22); Magnesium 2.1 mg/dL (1.7-2.3); Osmolality Calculated 281 mOsm/kg (285-295); Phosphorus 3.4 mg/dL (2.5-4.5); Sodium 136 mmol/L (136-145); Total Protein 6.8 g/dL (6.6-8.7); Triglycerides 100 mg/dL (0-150)
[2023-03-06 04:55] LABS: Estmated Average Glucose 105; Hemoglobin A1C 5.3 % (4.0-6.0)
[2023-03-06] MEDS: hyDRALAzine 20 mg/mL INJ 1 mL 10 MG IVP (05:24)
[2023-03-06] MEDS: folic acid 1 mg Tablet PO (08:05)
[2023-03-06] MEDS: thiamine 100 mg Tablet PO (08:05)
[2023-03-06] MEDS: multivitamin therapeutic Tablet 1 TAB PO (08:06)
[2023-03-06] MEDS: PHENobarbital 130 mg/mL SDV 1 mL 64.8 MG IV ×2 (08:06→19:35)
[2023-03-06] MEDS: amlodipine 5 mg Tablet PO (09:30)
--- NOTE | 2023-03-06 12:40 | PM.PN ---
Subjective Subjective: No acute events overnight. Patient has remained hemodynamically stable and afebrile. Heart rate better controlled. Off amiodarone and Precedex was never started. No seizure activity overnight. Patient on examination is sleeping with mother at bedside. Wakes up to verbal stimulus and able to have complete conversation. Seems a little withdrawn. Discussed in detail with him that causes of seizures are most likely in view of alcohol withdrawal. Offered patient with alcohol rehab but he declined. Asking if he can go home today. States he is hungry. As per nursing staff patient having multiple episodes of soft bowel movements though patient declined any symptoms. Denies any abdominal pain or nausea. Denies any visual or tactile hallucinations. Vitals/I&O/Wt Last Vital Signs Temp 98.2 F 03/06/23 00:00 Pulse 80 03/06/23 06:00 Resp 22 H 03/06/23 04:30 BP 186/127 03/06/23 08:00 Pulse Ox 97 03/06/23 09:03 O2 Del Method Room Air 03/05/23 17:30 03/05/23 03/06/23 03/06/23 22:59 06:59 14:59 Intake Total 894.122 / 7334.012 7303.2 / 3185.550 Output Total 250 / 250 Balance 644.122 / 8162.502 6802.2 / 2935.550 Weight last 48 hrs Weight 122.47 kg Physical Exam Narrative: General: No acute distress, AO x3, CIWA?3 HEENT: PERRLA, pupils bilaterally equal and reactive Chest: Normal vesicular breath sounds, no added sounds, equal good air entry bilaterally CVS: S1-S2 regular, no murmurs, no tachycardia, no gallops, no rubs Abdomen: Soft, nontender, no organomegaly, bowel sounds present Neuro: Moving all limbs, drowsy, no focal deficit Data 03/06/23 02:57 03/06/23 02:57 A&P Assessment and plan (1) Seizure: Most likely in setting of alcohol abuse vs withdrawal. Organic causes less likely. CT head negative. Alcohol level negative, drug screen positive for marijuana, barbiturates, benzos. Continue with phenobarbital at 62.4 mg every 12 hourly. Given no organic lesions or seizures most likely will discharge off antiseizure medications. (2) Alcohol abuse: Continue with IV fluids 100 cc/h. Monitor CIWA. Folic acid, multivitamin. Offered patient about alcohol rehab program the patient for now is reluctant. Did discuss that if he later thinks that he would want to go ahead with alcohol rehab he can always reach out. (3) High anion gap metabolic acidosis: Resolved. (4) Tachyarrhythmia: Resolved. Sinus versus MAT. (5) Elevated blood pressure reading: Goal less than 140/90 mmhg. Blood pressure continues to remain high. Start on amlodipine 5 mg oral daily. Continue to monitor. Plan Full code Protonix for PUD Lovenox for DVT PPx Regular diet. Discharge plan: Continue to monitor CIWA with phenobarbital load for next 24 hours. If patient remains hemodynamically stable without seizures for next 24 hours can plan to discharge home with caregiver. Patient declined alcohol rehab. Attestations Medical Necessity Statement*: Requires further hospitalization for management of alcohol withdrawal seizures Diagnoses Seizure R56.9 Alcohol abuse F10.10 High anion gap metabolic acidosis E87.29 Tachyarrhythmia R00.0 Elevated blood pressure reading R03.0
[2023-03-06] MEDS: pantoprazole 40 mg SDV IVP (17:44)
[2023-03-07] VITALS: BP 147/82; PULSE 74; RESP 18; TEMP 36.9; O2SAT 96
[2023-03-07] MEDS: heparin 5,000 unit/mL INJ 1 mL 5000 UNIT SUBCUT (01:42)
[2023-03-07 01:52] VITALS: BP 147/82; PULSE 74; RESP 18; O2SAT 96
[2023-03-07 03:59] LABS: Basophils % 0.6 %; Eosinophils # 0.1 10^3/uL (0.0-0.8); Hematocrit 44.9 % (42.0-52.0); Hemoglobin 14.6 g/dL (11.7-16.6); Lymphocytes # 1.2 10^3/uL (0.8-4.8); Lymphocytes % 22.9 %; Mean Corpuscular HGB Conc 32.5 g/dL (30.0-36.0); Mean Corpuscular Hemoglobin 31.6 pg (28.0-34.0); Mean Corpuscular Volume 97.2 fl (80-94); Mean Platelet Volume 10.4 fL (7.4-10.4); Monocytes # 0.8 10^3/uL (0.2-0.9); Neutrophils # 2.99 10^3/uL (1.8-7.7); Neutrophils % 59.1 %; Nucleated Red Blood Cells % 0 %; Platelet Count 132 10^3/cmm (130-400); Red Blood Count 4.62 10^6/uL (4.1-5.3); Red Cell Distribution Width 12.5 % (12.1-15.1); White Blood Count 5.1 10^3/uL (4.0-10.0)
[2023-03-07 04:25] LABS: Alanine Aminotransferase 51 U/L (0-41); Albumin Level 4.3 g/dL (3.5-5.2); Alkaline Phosphatase 53 U/L (40-130); Anion Gap 18.3 (5-19); Aspartate Amino Transferase 81 U/L (0-40); Blood Urea Nitrogen 8 mg/dL (6-20); Calcium 9.2 mg/dL (8.5-10.5); Carbon Dioxide 22 mmol/L (22-29); Chloride 97 mmol/L (98-107); Globulin 3.4 g/dL (1.3-4.6); Glucose 92 mg/dL (65-115); Osmolality Calculated 276 mOsm/kg (285-295); Potassium 3.3 mmol/L (3.5-5.1); Sodium 134 mmol/L (136-145); Total Bilirubin 0.9 mg/dL (0.15-1.2); Total Protein 7.7 g/dL (6.6-8.7)
[2023-03-07 05:52] VITALS: PULSE 76; RESP 18; TEMP 36.9; O2SAT 96
[2023-03-07 07:00] VITALS: BP 157/106
[2023-03-07 09:04] VITALS: BP 158/107; PULSE 86; O2SAT 98
[2023-03-07] MEDS: PHENobarbital 130 mg/mL SDV 1 mL 64.8 MG IV (09:21)
[2023-03-07] MEDS: amlodipine 5 mg Tablet PO (09:21)
[2023-03-07] MEDS: multivitamin therapeutic Tablet 1 TAB PO (09:23)
[2023-03-07] MEDS: thiamine 100 mg Tablet PO (09:23)
[2023-03-07] MEDS: folic acid 1 mg Tablet PO (09:23)
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
--- NOTE | 2023-03-07 12:50 | PC.NURSE ---
All D/C instructions educated to patient and mother. no concerns expressed
== END 2023-03-07 12:51 | disposition home or self-care (01) | DRG 897 ==
LOC: ER 15:20 → ICU 19:06
PROVIDERS: Admitting Provider Student in an Organized Health Care Education/Training Program; Emergency Provider Family Medicine; PCP Nurse Practitioner Family; Visit Provider Student in an Organized Health Care Education/Training Program
DX: F10.139 Alcohol abuse with withdrawal, unspecified (principal); E87.20 Acidosis, unspecified; F12.90 Cannabis use, unspecified, uncomplicated; Y90.9 Presence of alcohol in blood, level not specified; R00.0 Tachycardia, unspecified; I16.0 Hypertensive urgency; F17.200 Nicotine dependence, unspecified, uncomplicated
CPT/HCPCS: 36415; 70450; 71045; 80048; 80053; 80061; 80306; 80307; 81001; 82550; 82607; 82746; 83036; 83540; 83550; 83605; 83735; 84100; 84443; 84484; 85025; 93005; 94664; 96365; 96372; 96375; 96376; 99285; C9113; J0282; J0360; J1644; J2060; J2405; J2560; J3411; J3490; J7030; J7060; J7799

== ENCOUNTER 2023-11-27 09:20 | Inpatient (IN) | payer MEDICAID, SELFPAY ==
[2023-11-27] VITALS (42 sets, daily range): BP systolic 129–172; BP diastolic 80–114; PULSE 64–126; RESP 9–41; TEMP 36.8–37.3; O2SAT 86–98; BMI 30.9; BMI 31.1
[2023-11-27 09:40] LABS: Basophils # 0.1 10^3/uL (0.0-0.1); Basophils % 1.6 %; Eosinophils % 0.4 %; Lymphocytes # 3.4 10^3/uL (0.8-4.8); Lymphocytes % 48.4 %; Mean Corpuscular HGB Conc 32.7 g/dL (30-55); Mean Corpuscular Hemoglobin 32.1 pg (27-33); Mean Corpuscular Volume 98.2 fl (82-101); Mean Platelet Volume 9.8 fL (7.4-10.4); Monocytes # 0.9 10^3/uL (0.2-0.9); Monocytes % 12.4 %; Neutrophils # 2.58 10^3/uL (1.8-7.7); Neutrophils % 36.9 %; Nucleated Red Blood Cells % 0 %; Platelet Count 254 10^3/cmm (157-399); Red Blood Count 4.99 10^6/uL (3.85-5.65); Red Cell Distribution Width 12.2 % (12.1-15.1)
[2023-11-27] MEDS: LORazepam 2 mg/mL INJ 10 mL MDV IVP ×4 (09:43→14:38)
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
[2023-11-27] MEDS: ondansetron 2 mg/ML SDV 2 mL 4 MG IVP ×2 (10:00→10:55)
[2023-11-27 10:03] LABS: Alanine Aminotransferase 41 U/L (0-41); Albumin Level 4.4 g/dL (3.5-5.2); Alcohol Level 127 mg/dL (0-10); Alkaline Phosphatase 72 U/L (40-130); Anion Gap 33.6 (5-19); Aspartate Amino Transferase 71 U/L (0-40); Blood Urea Nitrogen 7 mg/dL (6-20); Calcium 9.2 mg/dL (8.5-10.5); Carbon Dioxide 15 mmol/L (22-29); Chloride 96 mmol/L (98-107); Creatine Phosphokinase 309 U/L (39-308); Globulin 4.2 g/dL (1.3-4.6); Glucose 157 mg/dL (65-115); Osmolality Calculated 295 mOsm/kg (285-295); Sodium 142 mmol/L (136-145); Total Bilirubin 0.7 mg/dL (0.15-1.2); Total Protein 8.6 g/dL (6.6-8.7)
[2023-11-27 10:23] LABS: Acetaminophen < 5.0 ug/mL (10-30); Potassium 2.6 mmol/L (3.5-5.1); Salicylate < 0.3 mg/dL (3-10)
[2023-11-27] MEDS: iohexol 350 mg/mL 500 mL Btl (per mL) IV (10:59)
[2023-11-27 11:13] LABS: Lactic Sepsis W/Reflex 5.1 mmol/L (0.5-2.2)
[2023-11-27] MEDS: multivitamin therapeutic Tablet 1 TAB PO (11:40)
[2023-11-27] MEDS: folic acid 1 mg Tablet PO (11:40)
[2023-11-27] MEDS: potassium chloride premix 100 ML 25 MEQ IV ×2 (11:41→16:19)
[2023-11-27 12:18] LABS: Magnesium 1.7 mg/dL (1.7-2.3)
[2023-11-27 12:30] LABS: Reflex Lactate Order REFLEX LACTIC ORDERD
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
[2023-11-27] MEDS: PHENobarbital 130 mg/mL SDV 1 mL 120 MG IVP ×2 (13:16→16:20)
[2023-11-27 13:31] LABS: Amphetamines Screen Urine Negative (Negative); Barbiturates Screen Urine Negative (Negative); Benzodiazepines Screen Urine Positive (Negative); Cocaine Screen Urine Positive (Negative); Opiate Screen Urine Negative (Negative); PCP Screen Urine Negative (Negative); THC Screen Urine Negative (Negative)
[2023-11-27 13:39] LABS: Lipase 84 U/L (13-60)
[2023-11-27 13:40] LABS: Add Urine Culture? No; Add Urine Microscopic? YES; Bacteria Urine TRACE /hpf; Bilirubin Urine Neg (Negative); Blood Urine 2+ (Negative); Glucose Urine UA Norm (Normal); Hyaline Casts Urine 0-4 /lpf; Ketones Urine 1+ (Negative); Leukocyte Esterase Urine Negative (Negative); Mucus Urine TRACE /hpf; Nitrate Urine Negative (Negative); Protein Urine 2+ (Negative); RBC Urine 0-4 /hpf (0-2); Specific Gravity, Urine 1.005 (1.005-1.030); Squamous Epithelial Cell Urine 0-4 /hpf (0-5); Urine Appearance Clear (CLEAR); Urine Color Yellow (Yellow); Urobilinogen Urine Neg (Negative); WBC Urine 0-4 /hpf (0-5); pH Urine 7 (5-7)
[2023-11-27 14:23] LABS: Lactic Acid level (Lactate) 2.2 mmol/L (0.5-2.2)
[2023-11-27] MEDS: pantoprazole 40 mg SDV IVP (16:20)
[2023-11-27] MEDS: sodium chlor 0.9% + KCl 20 mEq 20 MEQ/1,000 ML BAG 150 MEQ IV ×2 (16:20→23:13)
[2023-11-27] MEDS: enoxaparin 40 mg/0.4 mL Syringe SUBCUT (18:12)
[2023-11-27] MEDS: PHENobarbital 130 mg/mL SDV 1 mL 60 MG IVP (18:12)
[2023-11-28] VITALS (10 sets, daily range): BP systolic 143–171; BP diastolic 88–123; PULSE 64–96; RESP 17–24; TEMP 37.3; O2SAT 96
[2023-11-28 03:57] LABS: Basophils # 0.1 10^3/uL (0.0-0.1); Basophils % 1.3 %; Eosinophils % 0.2 %; Hematocrit 42.9 % (37-53); Lymphocytes # 0.9 10^3/uL (0.8-4.8); Mean Corpuscular HGB Conc 32.2 g/dL (30-55); Mean Corpuscular Volume 99.5 fl (82-101); Monocytes # 0.7 10^3/uL (0.2-0.9); Monocytes % 15.6 %; Neutrophils # 2.84 10^3/uL (1.8-7.7); Neutrophils % 62.5 %; Nucleated Red Blood Cells % 0 %; Platelet Count 168 10^3/cmm (157-399); Red Blood Count 4.31 10^6/uL (3.85-5.65); White Blood Count 4.55 10^3/uL (3.29-11.43)
[2023-11-28 04:22] LABS: Alanine Aminotransferase 28 U/L (0-41); Albumin Level 3.9 g/dL (3.5-5.2); Alkaline Phosphatase 56 U/L (40-130); Anion Gap 15.5 (5-19); Aspartate Amino Transferase 49 U/L (0-40); Blood Urea Nitrogen 6 mg/dL (6-20); Calcium 9.2 mg/dL (8.5-10.5); Carbon Dioxide 24 mmol/L (22-29); Chloride 103 mmol/L (98-107); Globulin 3.3 g/dL (1.3-4.6); Glomerular Filtration Rate 119.8 mL/min (90-130); Glucose 92 mg/dL (65-115); Magnesium 1.6 mg/dL (1.7-2.3); Osmolality Calculated 285 mOsm/kg (285-295); Potassium 3.5 mmol/L (3.5-5.1); Sodium 139 mmol/L (136-145); Total Bilirubin 1.1 mg/dL (0.15-1.2); Total Protein 7.2 g/dL (6.6-8.7)
--- NOTE | 2023-11-28 05:59 | PC.NURSE ---
Patient left AMA. Dr. Vargas was notified. Education was provided about the risk of leaving with unresolved alcohol withdrawal. Education about nausea and seizure activity that could occur was provided. Education about drinking water and eating fruit to increase their potassium was provided. Patient stated that they understood and that they just wanted to go home and eat and drink water. AMA paperwork was signed by the patient and put in their chart.
--- NOTE | 2023-11-28 06:17 | PC.NURSE ---
All IV were discontinued and patient's belongings went with the patient.
--- NOTE | 2023-11-28 07:57 | W.PM.EVENTAC ---
Event Note Event Note: Patient left AMA prior to my evaluation on 11/28/23.
== END 2023-11-28 06:16 | disposition left against medical advice (07) | DRG 894 ==
LOC: ER 12:56 → ICU 15:33
PROVIDERS: Admitting Provider Internal Medicine; Emergency Provider Family Medicine; PCP Nurse Practitioner Family; Visit Provider Internal Medicine
DX: F10.139 Alcohol abuse with withdrawal, unspecified (principal); Y90.9 Presence of alcohol in blood, level not specified; E87.6 Hypokalemia; F17.200 Nicotine dependence, unspecified, uncomplicated; V89.0XXA Person injured in unspecified motor-vehicle accident, nontraffic, initial encounter
CPT/HCPCS: 36415; 70450; 71260; 72125; 74177; 80053; 80306; 80307; 81001; 82550; 83605; 83690; 83735; 85025; 96365; 96366; 96372; 96375; 96376; 99285; C9113; J1650; J2060; J2405; J2560; J3411; J3480; Q9967

== ENCOUNTER 2023-11-28 11:11 | Inpatient (IN) | payer MEDICAID, SELFPAY ==
[2023-11-28] VITALS (104 sets, daily range): BP systolic 116–170; BP diastolic 66–125; PULSE 53–118; RESP 12–29; TEMP 36.8–36.9; O2SAT 82–99; BMI 30.9; BMI 29.4
[2023-11-28 11:29] LABS: Basophils # 0.1 10^3/uL (0.0-0.1); Basophils % 1.2 %; Eosinophils % 0.2 %; Hematocrit 43.3 % (37-53); Lymphocytes # 1.3 10^3/uL (0.8-4.8); Lymphocytes % 26.2 %; Mean Corpuscular HGB Conc 33.9 g/dL (30-55); Mean Corpuscular Hemoglobin 32.1 pg (27-33); Mean Corpuscular Volume 94.5 fl (82-101); Mean Platelet Volume 9.8 fL (7.4-10.4); Monocytes # 0.6 10^3/uL (0.2-0.9); Monocytes % 12.5 %; Neutrophils # 2.97 10^3/uL (1.8-7.7); Neutrophils % 59.7 %; Nucleated Red Blood Cells % 0 %; Platelet Count 176 10^3/cmm (157-399); Red Blood Count 4.58 10^6/uL (3.85-5.65); Red Cell Distribution Width 11.9 % (12.1-15.1); White Blood Count 4.97 10^3/uL (3.29-11.43)
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
[2023-11-28] MEDS: sodium chloride 0.9% 1,000 ML 999 ML IV (11:40)
[2023-11-28 11:50] LABS: Alanine Aminotransferase 29 U/L (0-41); Albumin Level 4.4 g/dL (3.5-5.2); Alkaline Phosphatase 59 U/L (40-130); Aspartate Amino Transferase 54 U/L (0-40); Blood Urea Nitrogen 5 mg/dL (6-20); Calcium 9.5 mg/dL (8.5-10.5); Carbon Dioxide 23 mmol/L (22-29); Chloride 97 mmol/L (98-107); Globulin 3.3 g/dL (1.3-4.6); Glomerular Filtration Rate 139.8 mL/min (90-130); Glucose 88 mg/dL (65-115); Osmolality Calculated 279 mOsm/kg (285-295); Sodium 136 mmol/L (136-145); Total Bilirubin 1.3 mg/dL (0.15-1.2); Total Protein 7.7 g/dL (6.6-8.7)
[2023-11-28 11:52] LABS: Alcohol Level < 10 mg/dL (0-10); Anion Gap 19.4 (5-19); Potassium 3.4 mmol/L (3.5-5.1)
--- NOTE | 2023-11-28 11:57 | ECG_ITS ---
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 Measurements Intervals [place] Rate: 70 P: 62 ID: [id number] QRS: 54 QRSD: 112 T: 75 QT: 401 QTc: 434 Interpretive Statements SINUS RHYTHM INCOMPLETE RIGHT BUNDLE BRANCH BLOCK [90+ ms QRS DURATION, TERMINAL R IN V1/V2, 40+ ms S IN I/aVL/V4/V5/V6] ST DEVIATION AND MODERATE T-WAVE ABNORMALITY, CONSIDER LATERAL ISCHEMIA [-0.1+ mV T-WAVE IN I/aVL/V5/V6] Compared to ECG 03/05/2023 14:49:47 Incomplete right bundle-branch block now present Possible ischemia now present Sinus tachycardia no longer present T-wave abnormality still present Electronically Signed On 11-28-2023 18:57:11 ANIMAL SURGEON by Lusi Jane M.D. [email or web address]
[2023-11-28] MEDS: sodium chloride 0.9% 1,000 ML 100 ML IV (13:36)
--- NOTE | 2023-11-28 13:46 | P.HP_ITS ---
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 No active chest pain shortness of breath or confusion. Mild tremors positive. Very anxious. Tachycardic and tachypneic. Does not smoke, endorses for marijuana He has been started on Librium taper Received phenobarbital yesterday in the ER Concern for alcohol withdrawal seizure admit to ICU on 96-hour hold Review of Systems 2 Const: Denies: fever(s) Eyes: Denies: change in vision ENMT: Denies: throat pain Card: Denies: chest pain Resp: Denies: dyspnea GI: Denies: abdominal pain : Denies: flank pain Musc: Denies: neck pain Medications/Allergies Home Medications Medication Instructions Recorded Confirmed Last Taken Type No Known Home Medications 11/27/23 11/28/23 Unknown History Allergies Allergy/AdvReac Type Severity Reaction Status Date / Time No Known Allergies Allergy Verified 11/28/23 11:22 PFSH Acute 2 PFSH: Medical History Alcohol abuse Concussion Psychiatric care Seizure Surgical History History of surgery on lower extremity History of appendectomy S/P appendectomy Social History Smoking and tobacco/nicotine status: current every day tobacco/nicotine user Alcohol intake: current Alcohol intake frequency: 3 or more drinks per day Vitals/I&O/Wt Last Vital Signs Temp 98.4 F 11/28/23 11:19 Pulse 84 11/28/23 12:01 Resp 18 11/28/23 12:01 BP 170/113 11/28/23 12:01 Pulse Ox 99 11/28/23 12:01 O2 Del Method Room Air 11/28/23 12:01 11/27/23 11/28/23 11/28/23 22:59 06:59 14:59 Intake Total 1000 / 1000 Balance 1000 / 1000 Weight last 48 hrs Weight 121.563 kg Weight 124.738 kg Physical Exam 2 Narrative: Awake and alert GCS 15 Mild tremors CIWA less than 8 Well-built male Hemodynamic stable No active seizure Abdomen soft No active vomiting Tachycardic and hypertensive Data 11/28/23 11:18 11/28/23 11:18 A&P Assessment and plan (1) Alcohol abuse: (2) Alcohol withdrawal: (3) Elevated blood pressure reading: (4) Tachyarrhythmia: (5) Transaminitis: (6) Hypokalemia: (7) Seizure: (8) Alcohol withdrawal seizure: Plan Alcohol withdrawal related seizures [facility] protocol Received phenobarbital yesterday Today I will put him on Librium taper Once withdrawal symptoms are over he will go to neuropsychiatric unit Dr. Nelson consulted I am expecting autonomic dysfunction due to severe alcohol abuse Benzodiazepine would be used for now, I will give him hydralazine on as needed basis No active seizure Regular diet Full code DVT prophylaxis on board 96 hold Attestations 2 Medical Necessity Statement*: Admit to ICU Coding Level of Care Code 59416 Diagnoses Alcohol abuse F10.10 Alcohol withdrawal F10.939 Elevated blood pressure reading R03.0 Tachyarrhythmia R00.0 Transaminitis R74.01 Hypokalemia E87.6 Seizure R56.9 Alcohol withdrawal seizure F10.939; R56.9
[2023-11-28] MEDS: enoxaparin 40 mg/0.4 mL Syringe SUBCUT (14:00)
[2023-11-28] MEDS: potassium chloride ER 20 mEq Tablet 40 MEQ PO (14:00)
[2023-11-28] MEDS: sodium chloride 0.9% 1,000 ML 75 ML IV (14:02)
--- NOTE | 2023-11-28 14:21 | PC.NURSE ---
REceived patient from ER staff at 1324. Patient is alert to person, place, time, and situation. HR: 83, BP: 170/105. RR:18, SPO2 97% on room air. Temp: 98.2. Patient scores a 1 on the CIWA due to a barely noticeable tremor. Is aware of the 96 hour hold.
[2023-11-28 15:25] LABS: Thyroid Stimulating Hormone 4.25 uIU/mL (0.27-4.20)
[2023-11-28] MEDS: magnesium oxide 400 mg tablet PO (17:44)
--- NOTE | 2023-11-28 18:32 | PC.NURSE ---
Shift Summary: Uneventful shift Patient arrived from ER at approximately 1330. Has rested in bed throughout rest of shift. No medications given under [facility] protocol.
[2023-11-28] MEDS: hyDRALAzine 20 mg/mL INJ 1 mL 10 MG IVP (18:37)
[2023-11-28 21:43] LABS: Bilirubin Urine Neg (Negative); Blood Urine Neg (Negative); Glucose Urine UA Norm (Normal); Ketones Urine 2+ (Negative); Nitrate Urine Negative (Negative); Protein Urine Trace (Negative); Urine Appearance Clear (CLEAR); Urine Color Yellow (Yellow); pH Urine 7 (5-7)
[2023-11-28 21:44] LABS: Add Urine Culture? No; Add Urine Microscopic? YES; Bacteria Urine TRACE /hpf; Leukocyte Esterase Urine Negative (Negative); Urobilinogen Urine Neg (Negative)
[2023-11-29] VITALS (13 sets, daily range): BP systolic 108–163; BP diastolic 66–118; PULSE 55–114; RESP 15–26; TEMP 36.6–36.9; O2SAT 94–97; BMI 29.4
[2023-11-29 04:41] LABS: Basophils % 0.9 %; Eosinophils % 0.4 %; Hematocrit 43.4 % (37-53); Lymphocytes # 0.7 10^3/uL (0.8-4.8); Lymphocytes % 16.1 %; Mean Corpuscular HGB Conc 33.2 g/dL (30-55); Mean Corpuscular Hemoglobin 32.1 pg (27-33); Mean Corpuscular Volume 96.9 fl (82-101); Monocytes # 0.5 10^3/uL (0.2-0.9); Monocytes % 11.4 %; Neutrophils # 3.16 10^3/uL (1.8-7.7); Nucleated Red Blood Cells % 0 %; Platelet Count 147 10^3/cmm (157-399); Red Blood Count 4.48 10^6/uL (3.85-5.65); Red Cell Distribution Width 11.7 % (12.1-15.1); White Blood Count 4.46 10^3/uL (3.29-11.43)
[2023-11-29 05:05] LABS: Alanine Aminotransferase 26 U/L (0-41); Alkaline Phosphatase 56 U/L (40-130); Anion Gap 20.8 (5-19); Aspartate Amino Transferase 46 U/L (0-40); Blood Urea Nitrogen 6 mg/dL (6-20); Calcium 9.5 mg/dL (8.5-10.5); Carbon Dioxide 21 mmol/L (22-29); Chloride 98 mmol/L (98-107); Globulin 3.8 g/dL (1.3-4.6); Glomerular Filtration Rate 139.8 mL/min (90-130); Glucose 81 mg/dL (65-115); Magnesium 1.7 mg/dL (1.7-2.3); Osmolality Calculated 279 mOsm/kg (285-295); Potassium 3.8 mmol/L (3.5-5.1); Sodium 136 mmol/L (136-145); Total Bilirubin 1.3 mg/dL (0.15-1.2); Total Protein 7.8 g/dL (6.6-8.7)
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
[2023-11-29] MEDS: sodium chloride 0.9% 1,000 ML 75 ML IV (07:05)
[2023-11-29] MEDS: nicotine 14 mg Patch 1 PATCH TRANSDERMA (07:26)
[2023-11-29] MEDS: labetalol 200 mg Tablet 100 MG PO ×2 (09:52→17:29)
[2023-11-29] MEDS: magnesium oxide 400 mg tablet PO ×2 (09:52→17:29)
--- NOTE | 2023-11-29 11:29 | P.PN_ITS ---
Subjective 2 Subjective: Patient is hypertensive however no worsening of CIWA score overnight Has not received significant amount of benzodiazepine Still hypertensive Tachycardia has improved to some extent I will add p.o. antihypertensive regimen and transfer to neuropsych today Vitals/I&O/Wt Last Vital Signs Temp 98.1 F 11/29/23 09:00 Pulse 75 11/29/23 09:00 Resp 16 11/29/23 08:00 BP 156/107 11/29/23 09:00 Pulse Ox 95 11/29/23 08:00 O2 Del Method Room Air 11/29/23 08:00 11/28/23 11/29/23 11/29/23 22:59 06:59 14:59 Intake Total 2000 / 3000 240 / 240 Balance 2000 / 3000 240 / 240 Weight last 48 hrs Weight 121.563 kg Weight 121.563 kg Weight 124.738 kg Physical Exam 2 Narrative: Awake and alert GCS 15 Tremors mildly better however still present Awake and alert Euvolemic No headache or visual hallucination Nonfocal neuroexam Abdomen soft Data 11/29/23 04:25 11/29/23 04:25 A&P Assessment and plan (1) Alcohol abuse: (2) Alcohol withdrawal: (3) Elevated blood pressure reading: (4) Tachyarrhythmia: (5) Hypokalemia: (6) Seizure: (7) Alcohol withdrawal seizure: Plan No active signs of alcohol-related seizure Mild score on CIWA Continue Librium taper I will add lisinopril along labetalol for hypertension Tachycardia is improving This is autonomic dysfunction related to alcohol withdrawal which should be treated with benzodiazepines and Librium taper Labetalol and lisinopril might be discontinued before discharge I will follow along at neuropsych Transfer to n.p.u. today Full code Regular diet In case of any seizure related activity he can be given intramuscular diazepam 2-[address] Nelson notified Attestations 2 Medical Necessity Statement*: Continue medical management 96-hour hold Diagnoses Alcohol abuse F10.10 Alcohol withdrawal F10.939 Elevated blood pressure reading R03.0 Tachyarrhythmia R00.0 Hypokalemia E87.6 Seizure R56.9 Alcohol withdrawal seizure F10.939; R56.9
[2023-11-29] MEDS: PHENobarbital 32.4 mg Tablet 97.2 MG PO (12:15)
--- NOTE | 2023-11-29 12:20 | PC.NURSE ---
Transfer Note Patient transferred to NPU from ICU via wheelchair. Handoff report given to EDILMA Vicente. Patient oriented to environment and equipment. Covering service notified. Orders reviewed and will continue to monitor. Upon transfer patient is alert/oriented x4 on room air. All IV's removed prior to transfer. All patient belongings transferred with patient upon transfer to NPU.
[2023-11-29] MEDS: lisinopril 5 mg Tablet PO (13:36)
[2023-11-29] MEDS: chlordiazePOXIDE 25 mg Capsule PO ×2 (14:32→20:20)
[2023-11-29] MEDS: nicotine 2 mg Gum BUCCAL ×3 (15:21→19:43)
[2023-11-30 05:53] VITALS: BMI 29.4
[2023-11-30 06:00] VITALS: BP 115/65; PULSE 88; RESP 20; O2SAT 97
[2023-11-30] MEDS: magnesium oxide 400 mg tablet PO ×2 (07:59→17:10)
[2023-11-30] MEDS: folic acid 1 mg Tablet PO (08:00)
[2023-11-30] MEDS: multivitamin therapeutic Tablet 1 TAB PO (08:00)
[2023-11-30] MEDS: thiamine 100 mg Tablet PO (08:00)
[2023-11-30] MEDS: chlordiazePOXIDE 25 mg Capsule PO ×3 (08:00→19:50)
[2023-11-30] MEDS: nicotine 2 mg Gum BUCCAL ×4 (08:00→17:40)
[2023-11-30 14:00] VITALS: BP 149/92; PULSE 124; RESP 16; TEMP 36.8; O2SAT 98
--- NOTE | 2023-11-30 16:13 | P.NPUPN_ITS ---
Subjective NPU 2 Subjective: Patient presented today reporting that he is feeling better. He was very jovial and positive but continues to seem to lack insight per staff reports and direct observation. Spoke with mother who also agreed him being less than insightful about the situation that he finds himself when in the growing complications. We discussed a likelihood of discharge by Sunday with ongoing concerns about recovery insight. Mental Status Exam 2 MSE Comments: This is a very tall overweight white male, in hospital scrubs, with adequate grooming and eye contact. No abnormal movements. Cooperative with exam in mild distress. Speech was normal rate and volume. Mood described as in high spirits; affect congruent. Thought process, organized. Thought content: patient denied any suicidal or homicidal ideation, there were no delusions reported or noted, patient denied any auditory or visual hallucinations. Attention, concentration, and memory appeared intact, but none were formally tested. Alert and oriented times three. Insight and judgment appear limited. Impulse control is impaired. Vitals/I&O/Wt Last Vital Signs Temp 98.3 F 11/30/23 14:00 Pulse 124 H 11/30/23 14:00 Resp 16 11/30/23 14:00 BP 149/92 11/30/23 14:00 Pulse Ox 98 11/30/23 14:00 O2 Del Method Room Air 11/30/23 14:00 11/30/23 11/30/23 11/30/23 06:59 14:59 22:59 Intake Total 240 / 240 Balance 240 / 240 Weight last 48 hrs Weight 121.563 kg Weight 121.563 kg Weight 121.563 kg Data NPU 11/29/23 04:25 11/29/23 04:25 A&P Assessment and plan (1) Alcohol withdrawal: (2) Alcohol use disorder, severe, dependence: (3) Transaminitis: (4) S/P appendectomy: (5) High anion gap metabolic acidosis: (6) Hypokalemia: (7) Seizure: (8) Alcohol withdrawal seizure: Plan This is a 23-year-old white male with a long history of addiction specifically alcohol with recent legal challenges from the alcohol with continued use despite these clear indicators of a problem who presents a few days after leaving AMA after more withdrawal seizures who presents on a 96-hour hold. 1.? Continue current medication. 2.? Consult with social work team on plans for after discharge. 3.? Encourage individual, group, and milieu therapy. 4.? Continue q-15-minute checks for safety. 5.? Recommend sober living treatment at the highest level of care to which the patient is willing to commit. Patient agreed to fill out turning leaf application but he has yet to complete the document. Involuntary Hold Information 2 96 Hour Hold: 96 Hour Involuntary Admission: Yes 96 Hour Hold Ending Date: 12/04/23 96 Hour Hold Ending Time: 11:29 Attestations NPU 2 Medical Necessity Statement*: Inpatient hospitalization is medically necessary and the clinically appropriate intervention, at this time. We will monitor medications and make changes as indicated. Likely length of stay is 2-4 days. Coding Level of Care Code Acute Code for Chg Fwd Diagnoses Alcohol withdrawal F10.939 Alcohol use disorder, severe, dependence F10.20 Transaminitis R74.01 S/P appendectomy Z90.49 High anion gap metabolic acidosis E87.29 Hypokalemia E87.6 Seizure R56.9 Alcohol withdrawal seizure F10.939; R56.9
[2023-11-30 19:52] VITALS: RESP 16
[2023-12-01 06:00] VITALS: BP 131/95; PULSE 89; RESP 18; O2SAT 98; BMI 29.4
[2023-12-01] MEDS: nicotine 2 mg Gum BUCCAL ×4 (06:06→20:31)
[2023-12-01] MEDS: chlordiazePOXIDE 25 mg Capsule PO ×3 (08:44→20:30)
[2023-12-01] MEDS: magnesium oxide 400 mg tablet PO ×2 (08:44→17:28)
[2023-12-01] MEDS: thiamine 100 mg Tablet PO (08:44)
[2023-12-01] MEDS: multivitamin therapeutic Tablet 1 TAB PO (08:44)
[2023-12-01] MEDS: folic acid 1 mg Tablet PO (08:44)
--- NOTE | 2023-12-01 10:44 | P.NPUPN_ITS ---
Subjective NPU 2 Subjective: Patient presented today reporting that he is getting better every day. He continues to struggle with seeming to really appreciate the gravity of his situation. He did ultimately fill out his turning leaf application which we will pass on/fax in for him. He did not know his so security number and we discussed the importance of him taking on some more adult level responsibility. We discussed the importance of him identifying his situation in a more mature fashion. We discussed the likelihood of discharge in the morning. Mental Status Exam 2 MSE Comments: This is a very tall overweight white male, in hospital scrubs, with adequate grooming and eye contact. No abnormal movements. Cooperative with exam in mild distress. Speech was normal rate and volume. Mood described as much better; affect appears congruent. Thought process, organized. Thought content: patient denied any suicidal or homicidal ideation, there were no delusions reported or noted, patient denied any auditory or visual hallucinations. Attention, concentration, and memory appeared intact, but none were formally tested. Alert and oriented times three. Insight and judgment appear limited. Impulse control is impaired. Vitals/I&O/Wt Last Vital Signs Temp 98.3 F 11/30/23 14:00 Pulse 89 12/01/23 06:00 Resp 18 12/01/23 06:00 BP 131/95 12/01/23 06:00 Pulse Ox 98 12/01/23 06:00 O2 Del Method Room Air 11/30/23 14:00 Weight last 48 hrs Weight 121.563 kg Weight 121.563 kg Weight 121.563 kg Data NPU 11/29/23 04:25 11/29/23 04:25 A&P Assessment and plan (1) Alcohol withdrawal: (2) Alcohol use disorder, severe, dependence: (3) Transaminitis: (4) S/P appendectomy: (5) High anion gap metabolic acidosis: (6) Hypokalemia: (7) Seizure: (8) Alcohol withdrawal seizure: Plan This is a 23-year-old white male with a long history of addiction specifically alcohol with recent legal challenges from the alcohol with continued use despite these clear indicators of a problem who presents a few days after leaving AMA after more withdrawal seizures who presents on a 96-hour hold. 1.? Continue current medication. 2.? Consult with social work team on plans for after discharge. 3.? Encourage individual, group, and milieu therapy. 4.? Continue q-15-minute checks for safety. 5.? Recommend sober living treatment at the highest level of care to which the patient is willing to commit. Patient agreed to fill out turning leaf application but he has yet to complete the document. Involuntary Hold Information 2 96 Hour Hold: 96 Hour Involuntary Admission: Yes 96 Hour Hold Ending Date: 12/04/23 96 Hour Hold Ending Time: 11:29 Attestations NPU 2 Medical Necessity Statement*: Inpatient hospitalization is medically necessary and the clinically appropriate intervention, at this time. We will monitor medications and make changes as indicated. Likely length of stay is 1-3 days. Coding Level of Care Code Acute Code for g Fwd Diagnoses Alcohol withdrawal F10.939 Alcohol use disorder, severe, dependence F10.20 Transaminitis R74.01 S/P appendectomy Z90.49 High anion gap metabolic acidosis E87.29 Hypokalemia E87.6 Seizure R56.9 Alcohol withdrawal seizure F10.939; R56.9
[2023-12-01 14:00] VITALS: BP 122/78; PULSE 90; RESP 17; TEMP 36.6; O2SAT 98
[2023-12-01] MEDS: nicotine 4 mg lozenge MUCOUS MEM (18:20)
[2023-12-01] MEDS: trazodone 50 mg Tablet PO (20:31)
[2023-12-01 20:45] VITALS: BP 148/77; PULSE 92; RESP 18; O2SAT 96
[2023-12-02 06:00] VITALS: BP 112/65; PULSE 101; RESP 18; O2SAT 97
[2023-12-02] MEDS: nicotine 2 mg Gum BUCCAL ×2 (06:14→09:34)
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
[2023-12-02 08:08] VITALS: BP 112/65; PULSE 101; RESP 18; O2SAT 97
[2023-12-02] MEDS: chlordiazePOXIDE 25 mg Capsule PO (09:34)
[2023-12-02] MEDS: thiamine 100 mg Tablet PO (09:34)
[2023-12-02] MEDS: magnesium oxide 400 mg tablet PO (09:34)
[2023-12-02] MEDS: multivitamin therapeutic Tablet 1 TAB PO (09:34)
[2023-12-02] MEDS: folic acid 1 mg Tablet PO (09:34)
== END 2023-12-02 10:34 | disposition home or self-care (01) | DRG 897 ==
LOC: ER 12:19 → ICU 12:43 → NP 11-29 12:16
PROVIDERS: Admitting Provider Internal Medicine; Emergency Provider Family Medicine; PCP Nurse Practitioner Family; Visit Provider Psychiatry & Neurology Psychiatry
DX: F10.139 Alcohol abuse with withdrawal, unspecified (principal); G40.89 Other seizures; E87.20 Acidosis, unspecified; I10 Essential (primary) hypertension; E87.6 Hypokalemia; F41.9 Anxiety disorder, unspecified; R00.0 Tachycardia, unspecified; Z72.0 Tobacco use; Z87.820 Personal history of traumatic brain injury
CPT/HCPCS: 36415; 80053; 80307; 81001; 83735; 84443; 85025; 93005; 96372; 96374; 97150; 97165; 99285; J0360; J1650; J3411; J7030

== ENCOUNTER → 2024-08-04 11:11 | Outpatient (BNVA) | payer BC, SELFPAY | PROVIDERS: PCP Nurse Practitioner Family; Visit Provider Nurse Practitioner Psychiatric/Mental Health | DX: Z79.899 Other long term (current) drug therapy (principal) | CPT/HCPCS: 80053 ==

== ENCOUNTER → 2024-08-07 09:31 | Outpatient (BNVA) | payer BC, SELFPAY | PROVIDERS: PCP Nurse Practitioner Family; Visit Provider Internal Medicine | DX: Z79.899 Other long term (current) drug therapy (principal); I45.89 Other specified conduction disorders; R94.31 Abnormal electrocardiogram [ECG] [EKG] | CPT/HCPCS: 93005 ==

== ENCOUNTER 2024-09-10 09:47 | Emergency (ER) | payer BC, SELFPAY ==
[2024-09-10 10:09] VITALS: BP 130/76; PULSE 76; RESP 16; TEMP 36.7; O2SAT 97; BMI 27.4
[2024-09-10 10:47] VITALS: BP 130/78; PULSE 63; O2SAT 99
--- NOTE | 2024-09-10 10:52 | ED_ITS ---
HPI - Male Genitourinary 2 General: Chief complaint: Urogenital-Male Stated complaint: blood in urine Time Seen by Provider: 09/10/24 10:40 History of Present Illness: 24-year-old male presents emergency room complaining of hematuria that began this morning. No dysuria urgency or frequency. He has had some mild low back pain. No history of kidney stones no fever sweats or chills Associated symptoms: Deny dysuria Related Data Previous Rx's Medication Instructions Recorded naltrexone microspheres 380 mg 380 mg IM .Q28 days #1 ea 08/04/24 intramuscular suspension,extended release (Vivitrol) ciprofloxacin HCl 500 mg tablet 500 mg PO BID #14 tabs 09/10/24 (Cipro) tamsulosin 0.4 mg capsule 0.4 mg PO DAILY #30 caps 09/10/24 Allergies Allergy/AdvReac Type Severity Reaction Status Date / Time No Known Allergies Allergy Verified 09/10/24 10:14 Review of Systems 2 Const: Denies: fever(s) or chills Card: Denies: chest pain Resp: Denies: dyspnea GI: Denies: abdominal pain : Denies: dysuria, urinary frequency or urinary urgency Musc: Denies: neck pain or back pain Skin/Breast: Denies: rash PFSH ED 2 PFSH: Medical History Nicotine dependence due to vaping tobacco product ADHD (attention deficit hyperactivity disorder), inattentive type Alcohol use disorder, severe, in early remission, dependence Sobriety date 02/08/24 Psychiatric care Surgical History History of surgery on lower extremity History of appendectomy S/P appendectomy Social History Smoking and tobacco/nicotine status: current every day tobacco/nicotine user Alcohol intake: current Alcohol intake frequency: 3 or more drinks per day Physical Exam 2 Const: COMMON NORMALS: no acute distress GENERAL APPEARANCE: cooperative and comfortable ORIENTATION/CONSCIOUSNESS: Yes awake, Yes oriented to person, Yes oriented to place and Yes oriented to time HENMT: COMMON NORMALS: normocephalic, atraumatic and hearing grossly normal bilaterally HEAD & SCALP: normocephalic and atraumatic Resp: COMMON NORMALS: normal respiratory effort, No retractions, No use of accessory muscles and clear to auscultation bilaterally AUSCULTATION: clear to auscultation bilaterally Cardio: COMMON NORMALS: regular rate, regular rhythm and No murmurs present (Cardio) RATE: regular rate RHYTHM: regular rhythm GI: COMMON NORMALS: Soft to palpation and No hepatosplenomegaly present A USCULTATION: Yes normoactive bowel sounds PALPATION: Yes Soft to palpation, No Tenderness to palpation present (GI), No Guarding due to palpation present (GI) and Yes No hepatosplenomegaly present Extremity: COMMON NORMALS: normal to inspection, capillary refill normal, no clubbing, cyanosis or edema, no calf tenderness and no pedal edema Neuro: SENSORIUM/ORIENTATION: Yes oriented to person, Yes oriented to place and Yes oriented to time Skin: COMMON NORMALS: no rashes or lesions noted GENERAL SKIN EXAM: no rashes or lesions noted Course 2 Vital Signs: Vital signs: Vital Signs Temperature 98.1 F 09/10/24 10:09 Pulse Rate 72 09/10/24 13:11 Respiratory Rate 16 09/10/24 10:09 Blood Pressure 138/82 09/10/24 13:11 Pulse Oximetry 100 09/10/24 13:11 Oxygen Delivery Me thod Room Air 09/10/24 10:09 MDM - Male Medical Decision Making The patient has probably has some bladder spasms from the blood not clearly signs of infection on the urine. I will cover him with antibiotics till the culture is done. CT did not show clinically significant abnormality. Will discharge patient home start him on tamsulosin increase fluid intake to ensure adequate bladder drainage. If unable to void needs to return. Will refer him to urology. Medical Records I reviewed the patient's medical records. Lab Data I reviewed the patient's lab results. 09/10/24 10:56 09/10/24 10:56 Radiology Impressions Abdomen/Pelvis CT 09/10/24 11:03 IMPRESSION: 1. Adrenal glands are normal. No obstructing renal or ureteral calculi. No hydronephrosis in either kidney. 2. A few tiny nonobstructing calyceal tip calculi bilaterally. 3. Evidence of prior appendectomy. 4. No other acute findings. Laboratory Results WBC 4.72 10^3/uL (3.29-11.43) 09/10/24 10:56 RBC 4.50 10^6/uL (3.85-5.65) 09/10/24 10:56 Hgb 13.10 g/dL (11.27-16.99) 09/10/24 10:56 Hct 39.6 % (37-53) 09/10/24 10:56 MCV 88.0 fl (82-101) 09/10/24 10:56 MCH 29.1 pg (27-33) 09/10/24 10:56 MCHC 33.1 g/dL (30-55) 09/10/24 10:56 RDW 12.3 % (12.1-15.1) 09/10/24 10:56 Plt Count 196 10^3/cmm (157-399) 09/10/24 10:56 MPV 9.1 fL (7.4-10.4) 09/10/24 10:56 Neut % (Auto) 44.4 % 09/10/24 10:56 Lymph % (Auto) 41.7 % 09/10/24 10:56 [place] % (Auto) 9.3 % 09/10/24 10:56 Eos % (Auto) 3.8 % 09/10/24 10:56 Baso % (Auto) 0.6 % 09/10/24 10:56 Neut # (Auto) 2.09 10^3/uL (1.8-7.7) 09/10/24 10:56 Lymph # (Auto) 2.0 10^3/uL (0.8-4.8) 09/10/24 10:56 [place] # (Auto) 0.4 10^3/uL (0.2-0.9) 09/10/24 10:56 Eos # (Auto) 0.2 10^3/uL (0.0-0.8) 09/10/24 10:56 Baso # (Auto) 0.0 10^3/uL (0.0-0.1) 09/10/24 10:56 Nucleated RBC % (auto) 0 % 09/10/24 10:56 Nucleated RBCs # 0.0 /100WBC 09/10/24 10:56 Sodium 137 mmol/L (136-145) 09/10/24 10:56 Potassium 4.4 mmol/L (3.5-5.1) 09/10/24 10:56 Chloride 100 mmol/L (98-107) 09/10/24 10:56 Carbon Dioxide 27 mmol/L (22-29) 09/10/24 10:56 Anion Gap 14.4 (5-19) 09/10/24 10:56 BUN 10 mg/dL (6-20) 09/10/24 10:56 Creatinine 0.7 mg/dL (0.7-1.2) 09/10/24 10:56 GFR Calculation 138.6 mL/min (90-130) H 09/10/24 10:56 Glucose 116 mg/dL (65-115) H 09/10/24 10:56 Calculated Osmolality 284 mOsm/kg (285-295) L 09/10/24 10:56 Calcium 9.2 mg/dL (8.5-10.5) 09/10/24 10:56 Total Bilirubin 1.0 mg/dL (0.15-1.2) 09/10/24 10:56 AST 23 U/L (0-40) 09/10/24 10:56 ALT 24 U/L (0-41) 09/10/24 10:56 Alkaline Phosphatase 76 U/L (40-130) 09/10/24 10:56 Total Protein 7.2 g/dL (6.6-8.7) 09/10/24 10:56 Albumin 4.4 g/dL (3.5-5.2) 09/10/24 10:56 Globulin 2.8 g/dL (1.3-4.6) 09/10/24 10:56 Urine Color Red (Yellow) A 09/10/24 10:17 Urine Appearance Cloudy (CLEAR) A 09/10/24 10:17 Urine pH TNP 09/10/24 10:17 Ur Specific [place] TNP 09/10/24 10:17 Urine Protein TNP 09/10/24 10:17 Urine Glucose (UA) TNP 09/10/24 10:17 Urine Ketones TNP 09/10/24 10:17 Urine Blood TNP 09/10/24 10:17 Urine Nitrate TNP 09/10/24 10:17 Urine Bilirubin TNP 09/10/24 10:17 Urine Urobilinogen TNP 09/10/24 10:17 Ur Leukocyte Esterase TNP 09/10/24 10:17 Urine RBC Too numerous to cnt /hpf (0-2) H 09/10/24 10:17 Urine WBC None /hpf (0-5) 09/10/24 10:17 Ur Squamous Epith Cells None /hpf (0-5) 09/10/24 10:17 Amorphous Sediment Not Reportable 09/10/24 10:17 Urine Bacteria 1+ /hpf (NONE) H 09/10/24 10:17 All radiology interpretation(s) finalized by discharge Discharge Plan Discharge Patient Disposition: Home Clinical Impression: Hematuria Condition: Stable Prescriptions: New tamsulosin 0.4 mg capsule 0.4 mg PO DAILY Qty: 30 0RF ciprofloxacin HCl [Cipro] 500 mg tablet 500 mg PO BID Qty: 14 0RF No Action Vivitrol 380 mg suspension,extended rel recon 380 mg IM .Q28 days Qty: 1 6RF Rx Instructions: Monthly injection every 28 days Discharge Orders: Discharge ED (Routine); Ordered 09/10/24 Ordered By: Apolinar Espinoza Referrals: Felicity Goldstein FNP [Primary Care Provider] - Discharge Diet: Usual diet Discharge Activity: Resume usual activity Patient Instructions: Opioid Safety, Pain Management Activity Restrictions/Additional Instructions: Thank you for choosing [facility] for your healthcare needs today. It is very important that you follow up as instructed or that you return to the Emergency Department should you have concerns or if your condition changes or worsens in any way. You were seen today with complaints of blood in the urine. There is blood in your urine and there is no definitive sign of infection. CT should not not show any significant abnormality. Urine will be cultured. Recommend that we prophylactically start you on antibiotics to the cultures completed additionally recommend that we start you on tamsulosin 1 to ensure you are able to empty your bladder adequately. He should increase your fluid intake is much as you are able. Case management make arrangements for you to have a follow-up appointment with urology Coding Level of Care Code ED Nursing Clerk for Everton Mars
[2024-09-10 10:57] LABS: Urine Appearance Cloudy (CLEAR); Urine Color Red (Yellow)
[2024-09-10 10:58] LABS: Add Urine Culture? Yes; Bacteria Urine 1+ /hpf; RBC Urine TOO NUMEROUS TO CNT /hpf (0-2)
--- NOTE | 2024-09-10 11:03 | CT_ITS ---
WS: [id number] CT ABDOMEN PELVIS TECHNIQUE: Noncontrast CT of the abdomen and pelvis with coronal and sagittal reformatted images. CLINICAL INFORMATION: flank pain/hematuria COMPARISON: CT 11/27/2023 DLP: 779.[address] scans at [facility] use at least one of these dose optimization techniques: automated e xposure control; mA and/or kV adjustment per patient size (includes targeted exams where dose is matc hed to clinical indication); or iterative reconstruction. FINDINGS: Adrenal glands are normal. No hydronephrosis in either kidney. No obstructing renal or ureteral calcu li. A few tiny nonobstructing calyceal tip calculi. Lung bases are well aerated. Noncontrast liver is nor mal. Normal noncontrast spleen. Normal GE junction. Normal noncontrast pancreas. Normal caliber abdominal aorta. Prior appendectomy. Normal sigmoid colon. Tiny fat-containing umbilic al hernia. No other acute findings. CT/CT kidney stone 33311 IMPRESSION: 1. Adrenal glands are normal. No obstructing renal or ureteral calculi. No hyd ronephrosis in either kidney. 2. A few tiny nonobstructing calyceal tip calculi bilaterally. 3. Evidence of prior appendectomy. 4. No other acute findings.
[2024-09-10 11:04] LABS: Basophils % 0.6 %; Eosinophils # 0.2 10^3/uL (0.0-0.8); Eosinophils % 3.8 %; Hematocrit 39.6 % (37-53); Lymphocytes % 41.7 %; Mean Corpuscular HGB Conc 33.1 g/dL (30-55); Mean Corpuscular Hemoglobin 29.1 pg (27-33); Mean Platelet Volume 9.1 fL (7.4-10.4); Monocytes # 0.4 10^3/uL (0.2-0.9); Monocytes % 9.3 %; Neutrophils # 2.09 10^3/uL (1.8-7.7); Neutrophils % 44.4 %; Nucleated Red Blood Cells % 0 %; Platelet Count 196 10^3/cmm (157-399); Red Cell Distribution Width 12.3 % (12.1-15.1); White Blood Count 4.72 10^3/uL (3.29-11.43)
[2024-09-10 11:21] LABS: Alanine Aminotransferase 24 U/L (0-41); Albumin Level 4.4 g/dL (3.5-5.2); Alkaline Phosphatase 76 U/L (40-130); Anion Gap 14.4 (5-19); Aspartate Amino Transferase 23 U/L (0-40); Blood Urea Nitrogen 10 mg/dL (6-20); Calcium 9.2 mg/dL (8.5-10.5); Carbon Dioxide 27 mmol/L (22-29); Chloride 100 mmol/L (98-107); Creatinine Clr Calc Pharmacy 236.9696; Globulin 2.8 g/dL (1.3-4.6); Glomerular Filtration Rate 138.6 mL/min (90-130); Glucose 116 mg/dL (65-115); Osmolality Calculated 284 mOsm/kg (285-295); Potassium 4.4 mmol/L (3.5-5.1); Sodium 137 mmol/L (136-145); Total Protein 7.2 g/dL (6.6-8.7)
[2024-09-10 12:11] VITALS: BP 123/87
[2024-09-10 13:11] VITALS: BP 138/82; PULSE 72; O2SAT 100
--- NOTE | 2024-09-12 18:25 | PC.ADMIT ---
[email or web address] [place] Admission Note: The patient,Saw No,24 y/o, was given written information regarding hospital policies, unit procedures and contact persons. Patient's smoking status: current every day smoker.
--- NOTE | 2024-09-12 18:27 | DCPLANNER ---
Chart was faxed to [facility] in [place] for referral. Faxed: [phone]
== END 2024-09-10 13:13 | disposition home or self-care (01) ==
PROVIDERS: Emergency Medicine; Emergency Provider Family Medicine; PCP Nurse Practitioner Family
DX: R31.9 Hematuria, unspecified (principal)
CPT/HCPCS: 74176; 80053; 81001; 85025; 87086; 99284